=== PATIENT | male | born 1945 | race Caucasian/White ===

== ENCOUNTER 2022-09-02 18:31 | Emergency (ER) | payer MEDICARE, OTHER ==
[~2022-09-02] VITALS: Ht 165.1 cm; Wt 56.0 kg
[2022-09-02 19:56] LABS: Basophils # (auto) 0 10 ^3/uL (0-0.2); Basophils % (auto) 0.5 % (0.0-2.0); Eosinophils # (auto) 0.1 10 ^3/uL (0-0.8); Eosinophils % (auto) 1.5 % (0.0-7.0); Hematocrit 35.9 % (41.0-53.0); Lymphocytes # (auto) 2.6 10 ^3/uL (0.4-5.4); Lymphocytes % (auto) 28.4 % (10.0-50.0); Mean Corpuscular Hemoglobin 29.5 pg (28.0-32.0); Mean Corpuscular Hgb Conc. 33.4 g/dL (32.0-36.0); Mean Corpuscular Volume 88.2 fL (80.0-100.0); Monocytes # (auto) 1.1 10 ^3/uL (0-1.3); Neutrophils # (auto) 5.3 10 ^3/uL (1.6-8.6); Neutrophils % (auto) 57.6 % (37.0-80.0); Nucleated Red Blood Cells % 0.3 %; Red Blood Cells 4.07 10^6/uL (4.5-5.90); Red Cell Distribution Width 12.8 % (11.8-14.3); White Blood Cell 9.2 10^3/uL (4.4-10.8)
[2022-09-02 19:57] LABS: Albumin 3.3 g/dL (3.4-5.0); Calcium 8.7 mg/dL (8.5-10.1); Potassium 4.8 mmol/L (3.5-5.1)
[2022-09-02 20:00] LABS: Bilirubin, Total 0.7 mg/dL (0.2-1.0); Total Protein 6.3 g/dL (6.4-8.2)
[2022-09-02] MEDS ORDERED: InsuLIN REG 1unit/0.01ml Soln (100units/ml) IV ONE (20:45)
[2022-09-03 03:39] VITALS: BP 139/62
== END 2022-09-03 04:13 | disposition home or self-care (01) ==
LOC: EDBD 18:31 → ER 18:45
DX: E11.65 Type 2 diabetes mellitus with hyperglycemia (principal); R07.89 Other chest pain; I10 Essential (primary) hypertension
CPT/HCPCS: 36415; 71045; 80053; 82962; 83880; 84484; 85025; 93005; 96374; 99285; J1815

== ENCOUNTER 2024-11-26 22:59 | Inpatient (IN) | payer MEDICARE, OTHER ==
[~2024-11-26] VITALS: Ht 167.6 cm; Wt 78.8 kg
[2024-11-26 23:10] VITALS: PULSE 97; RESP 16; O2SAT 93
--- NOTE | 2024-11-26 23:12 | ED.PDOC ---
HPI Comments 79-year-old male came to ER via EMS for STEMI. Patient has history of hypertension and diabetes, been complaining of chest pains for the past 4 days. Chest pain described to be pressure, substernal, radiating to both shoulders and arms, 8/10 intensity, associated with shortness a breath. Patient was given 324 aspirin while EN route to the ER. EKG done shows significant ST changes Chief Complaint: STEMI Time Seen by MD: 23:16 Reviewed Notes: Comparator Operator Notes Allergies: Coded Allergies: NO KNOWN ALLERGIES (Unverified , 09/03/22) Home Meds Unable to Obtain Active Prescriptions or Reported Meds Information Source: Patient, Emergency Med Personnel Mode of Arrival: EMS Severity: Moderate Timing: Days Duration: Intermittent Prehospital treatment: 12 Lead EKG, ASA Location: Substernal Radiation: Shoulder (R), Shoulder (L) Quality: Pressure Onset: With Light Exertion Cardiac Risk Factors: HTN, Diabetes History of: Similar pain in past Associated Signs and Symptoms: SOB Past Medical History PAST MEDICAL HISTORY: DM, HTN Surgical History: Denies all surgeries Surgical History (Other): Whipple's procedure Family History Family History: Reviewed,noncontributory to illness Social History Smoker: Non-Smoker Alcohol: Denies ETOH Use Drugs: Denies Drug Use Lives In: Home Constitutional: denies: chills, diaphoresis, fatigue, fever, malaise, sweats, weakness, others EENTM: denies: blurred vision, double vision, ear bleeding, ear discharge, ear drainage, ear pain, ear ringing, eye pain, eye redness, hearing loss, mouth pain, mouth swelling, nasal discharge, nose bleeding, nose congestion, nose pain, photophobia, tearing, throat pain, throat swelling, voice changes, others Respiratory: denies: cough, hemoptysis, orthopnea, SOB at rest, shortness of breath, SOB with excertion, stridor, wheezing, others Cardiovascular: reports: chest pain, diaphoresis; denies: dizzy spells, Dyspnea on exertion, edema, irregular heart beat, left arm pain, lightheadedness, palpitations, PND, syncope, others Gastrointestinal: denies: abdomen distended, abdominal pain, blood streaked bowels, constipated, diarrhea, dysphagia, difficulty swallowing, hematemesis, melena, nausea, poor appetite, poor fluid intake, rectal bleeding, rectal pain, vomiting, others Genitourinary: denies: burning, dysuria, flank pain, frequency, hematuria, incontinence, penile discharge, penile sore, pain, testicle pain, testicle swelling, urgency, others Neurological: denies: dizziness, fainting, headache, left sided numbness, left sided weakness, numbness, paresthesia, pre-existing deficit, right sided numbness, right sided weakness, seizure, speech problems, tingling, tremors, weakness, others Musculoskeletal: denies: back pain, gout, joint pain, joint swelling, muscle pain, muscle stiffness, neck pain, others Integumetry: denies: bruises, change in color, change in hair/nails, dryness, laceration, lesions, lumps, rash, wounds, others Allergic/Immunocompromised: denies: Difficulty Healing, Frequent Infections, Hives, Itching, others Hematologic/Lymphatic: denies: anemia, blood clots, easy bleeding, easy bruising, swollen glands, others Endocrine: denies: excessive hunger, excessive sweating, excessive thirst, excessive urination, flushing, intolerance to cold, intolerance to heat, unexplained weight gain, unexplained weight loss, others Psychiatric: denies: anxiety, bipolar disorder, depression, hopeless, panic disorder, schizophrenia, sleepless, suicidal, others Physical Exam General Appearance: No Apparent Distress, Normal HEENT: Normal ENT Inspection, Pharynx Normal, TMs Normal Neck: Full Range of Motion, Non-Tender, Normal, Normal Inspection Respiratory: Chest Non-Tender, Lungs Clear, No Accessory Muscle Use, No Respiratory Distress, Normal Breath Sounds Cardiovascular: No Edema, No JVD, No Murmur, No Gallop, Normal Peripheral Pulses, Regular Rate/Rhythm Breast Exam: Deferred Gastrointestinal: No Organomegaly, Non Tender, No Pulsatile Mass, Normal Bowel Sounds, Soft Genitalia: Deferred Pelvic: Deferred Rectal: Deferred Extremities: No calf tenderness, Normal capillary refill, Normal inspection, Normal range of motion, Non-tender, No pedal edema Musculoskeletal : Apperance: Normal Neurologic: Alert, academic associate II-XII nml as Tested, No Motor Deficits, Normal Affect, Normal Mood, No Sensory Deficits Cerebellar Function: Normal Reflexes: Normal Skin: Dry, Normal Color, Warm Lymphatic: No Adenopathy EKG EKG : Pulse Rate (adult): 96 Cardiac Rhythm: ST ST: New, Inf, Infarct Comments Multiple ventricular premature complex Was a procedure done? Was a procedure done?: No CP Differential Dx Differential Diagnosis: Angina, Anxiety / Panic Attack, Electrolyte Disorder Differential Diagnosis: Angina, Chest Wall Pain, Costochondritis, Esophageal reflux/spasm, Gastritis, Myocardial Infarction, Pneumonia X-Ray, Labs, Meds, VS Vital Signs Date Time Temp Pulse Resp B/P (MAP) Pulse Ox O2 Delivery O2 Flow Rate FiO2 11/26/24 23:20 98.0 94 12 152/83 (106) 93 98.0 11/26/24 23:18 95 12 160/83 11/26/24 23:16 96 11/26/24 23:10 98.4 97 16 160/83 (108) 93 98.4 11/26/24 23:10 97 16 93 Room Air* 0 21 11/26/24 23:10 97 11/26/24 22:59 98.4 98 18 154/92 (112) 98 98.4 Lab Test 11/26/24 23:34 11/26/24 23:07 Range/Units POC Glucose 74 70-106 mg/dl White Blood Count 10.0 4.4-10.8 10^3/uL Red Blood Count 3.92 L 4.5-5.90 10^6/uL Hemoglobin 11.8 L 13.5-17.5 g/dL Hematocrit 34.8 L 41.0-53.0 % Mean Corpuscular Volume 88.7 80.0-100.0 fL Mean Corpuscular Hemoglobin 30.1 28.0-32.0 pg Mean Corpuscular Hemoglobin Concent 33.9 32.0-36.0 g/dL Red Cell Distribution Width 14.2 11.8-14.3 % Platelet Count 199 140-450 10^3/uL Mean Platelet Volume 9.0 6.9-10.8 fL Neutrophils (%) (Auto) 32.3 L 37.0-80.0 % Lymphocytes (%) (Auto) 50.8 H 10.0-50.0 % Monocytes (%) (Auto) 12.1 H 0.0-12.0 % Eosinophils (%) (Auto) 3.8 0.0-7.0 % Basophils (%) (Auto) 1.0 0.0-2.0 % Neutrophils # (Auto) 3.2 1.6-8.6 10 ^3/uL Lymphocytes # (Auto) 5.1 0.4-5.4 10 ^3/uL Monocytes # (Auto) 1.2 0-1.3 10 ^3/uL Eosinophils # (Auto) 0.4 0-0.8 10 ^3/uL Basophils # (Auto) 0.1 0-0.2 10 ^3/uL Nucleated Red Blood Cells 0.0 % Prothrombin Time 10.6 9.3-11.8 sec Prothrombin Time INR 1.00 0.9-1.15 Activated Partial Thromboplast Time 25.1 24.5-34.5 SEC Sodium Level 142 136-145 mmol/L Potassium Level 3.6 3.5-5.1 mmol/L Chloride Level 109 H 98-107 mmol/L Carbon Dioxide Level 25 20-31 mmol/L Anion Gap 8 5-15 Blood Urea Nitrogen 22 9-23 mg/dL Creatinine 2.41 H 0.700-1.30 mg/dL Glomerular Filtration Rate Calc 27 >90 mL/min BUN/Creatinine Ratio 9.1 L 10.0-20.0 Serum Glucose 79 74-106 mg/dL Lactic Acid Level 1.1 0.4-2.0 mmol/L Calcium Level 9.9 8.7-10.4 mg/dL Troponin I High Sensitivity 374 *H </=54 ng/L Time of 1ST Reevaluation: 23:12 Reevaluation 1ST: Unchanged Patient Education/Counseling: Diagnosis, Treatment Family Education/Counseling: No Family Present Departure 1 Departure Time of Disposition: 05:50 (Patient presenting with a STEMI. Patient was emergently taken to the greens laborer.) Impression: Primary Impression: Acute ST elevation myocardial infarction Qualified Codes: I21.3 - ST elevation (STEMI) myocardial infarction of u nspecified site Additional Impression: Acute chest pain Disposition: ADMITTED INPATIENT Admit to: animal laboratory technician Condition: Critical e-Prescriptions Unable to Obtain Active Prescriptions or Reported Meds Critical Care Note Critical Care Time?: Yes (45 min-critical care time only) Critical care comment: Acute chest pains Authorized and Performed by: Marcela Morrow MD Total critical care time: Approximately 38 minutes Due to a high probability of clinically significant, life threatening deterioration, the patient required my highest level of preparedness to intervene emergently and I personally spent this critical care time directly and personally managing the patient. This critical care time included obtaining a history; examining the patient; pulse oximetry; ordering and review of studies; arranging urgent treatment with development of a management plan; evaluation of patient's response to treatment; frequent reassessment; and, discussions with other providers. This critical care time was performed to assess and manage the high probability of imminent, life-threatening deterioration that could result in multi-organ failure. It was exclusive of separately billable procedures and treating other patients and teaching time. Please see my other sections and the rest of the note for further information on patient assessment and treatment. Stability Stability form required: No Heart Score Heart Score: Heart Score Response (Comments) Value History Highly Suspicious [address]-Deviation 2 Age >65 2 Risk Factors >3 or Hx ASHD 2 Troponin >3 x's Normal limit 2 Total 10 I personally scribed for MARCELA MORROW MD ([email or web address]) on 11/26/24 at 23:12. Electronically submitted by Souleymane Joseph ([email or web address]). I personally scribed for MARCELA MORROW MD ([email or web address]) on 11/26/24 at 23:16. Electronically submitted by Souleymane Joseph ([email or web address]). MARCELA MORROW MD November 26, 2024 23:12
[2024-11-26] MEDS: CLOPIDOGREL BISULFATE 75 MG TAB PO ONE (23:18)
[2024-11-26] MEDS: ONDANSETRON HCL 4 MG/2 ML VIAL IV ONE (23:18)
[2024-11-26] MEDS: MORPHINE SULFATE 4 MG/ML SYR/VIAL IV ONE (23:18)
[2024-11-26] MEDS: HEPARIN SODIUM (PORCINE) 5000 UNITS/ML 1ML VIAL IV ONE (23:19)
[2024-11-26] MEDS: SODIUM CHL 0.9% 50 ML ONE (23:29)
[2024-11-26] MEDS: ANGIOMAX 250 MG VIAL IV ONE (23:29)
[2024-11-26] MEDS: MIDAZOLAM HCL 2MG/2ML 2ml VIAL (1mg/ml) ONE (23:29)
[2024-11-26] MEDS: fentaNYL CITRATE 100 MCG/2 ML VL ONE (23:29)
[2024-11-26] MEDS: VERAPAMIL 2.5MG/ML INJ 2ML VIAL IV ONE (23:29)
[2024-11-26] MEDS: LIDOCAINE 2%HCL (LOCAL ANESTH.) INJ 20ML MDV ONE (23:29)
[2024-11-26 23:36] LABS: Basophils # (auto) 0.1 10 ^3/uL (0-0.2); Eosinophils # (auto) 0.4 10 ^3/uL (0-0.8); Eosinophils % (auto) 3.8 % (0.0-7.0); Hematocrit 34.8 % (41.0-53.0); Hemoglobin 11.8 g/dL (13.5-17.5); Lymphocytes # (auto) 5.1 10 ^3/uL (0.4-5.4); Lymphocytes % (auto) 50.8 % (10.0-50.0); Mean Corpuscular Hemoglobin 30.1 pg (28.0-32.0); Mean Corpuscular Hgb Conc. 33.9 g/dL (32.0-36.0); Mean Corpuscular Volume 88.7 fL (80.0-100.0); Monocytes # (auto) 1.2 10 ^3/uL (0-1.3); Monocytes % (auto) 12.1 % (0.0-12.0); Neutrophils # (auto) 3.2 10 ^3/uL (1.6-8.6); Neutrophils % (auto) 32.3 % (37.0-80.0); Platelet Count (auto) 199 10^3/uL (140-450); Red Blood Cells 3.92 10^6/uL (4.5-5.90); Red Cell Distribution Width 14.2 % (11.8-14.3)
--- NOTE | 2024-11-26 23:36 | DVH ---
CHEST RADIOGRAPH Indication: chest pain Technique: Single frontal view of the chest was obtained COMPARISON: CHEST PORTABLE on DOS: 09/02/22 FINDINGS: Lines and Tubes: None Lungs: Clear Pleura: No effusion. No pneumothorax. Cardiomediastinal contours: Unremarkable IMPRESSION: No acute disease.
[2024-11-26 23:43] LABS: Potassium 3.6 mmol/L (3.5-5.1); Sodium 142 mmol/L (136-145)
[2024-11-26 23:44] LABS: Anion Gap 8 (5-15); Calcium 9.9 mg/dL (8.7-10.4); Carbon Dioxide 25 mmol/L (20-31)
[2024-11-26 23:46] LABS: Chloride 109 mmol/L (98-107)
[2024-11-26 23:49] LABS: BUN/Creatinine Ratio 9.1 (10.0-20.0); Blood Urea Nitrogen 22 mg/dL (9-23); Glucose 79 mg/dL (74-106)
--- NOTE | 2024-11-26 23:49 | DVHINCON2 ---
Date Seen: November 26, [address] Francisco Reason for Consultation Chest pain History of Present Illness 79-year-old gentleman who has been having chest pain for the last several days had an increasing bout of chest pain this evening. He came for further evaluation and treatment. He was brought by the ambulance. EN route he was noted to have ST segment elevations in the inferior leads. A code STEMI was ca lled. He does not have a previous history of underlying coronary artery disease Past Medical History His past medical history is significant for diabetes and hypertension. History of neuropathy. Chronic joint pain. Past Surgical History He does have a history of previous hip surgery. Previous gallbladder surgery and history of pancreatic surgery. History of pancreatic cyst in the past. Allergies: Coded Allergies: NO KNOWN ALLERGIES (Unverified , 09/03/22) Review of Systems Constitutional: denies: chills, diaphoresis, fatigue, fever, malaise, sweats, weakness, others EENTM: denies: blurred vision, double vision, ear bleeding, ear discharge, ear drainage, ear pain, ear ringing, eye pain, eye redness, hearing loss, mouth pain, mouth swelling, nasal discharge, nose bleeding, nose congestion, nose pain, photophobia, tearing, throat pain, throat swelling, voice changes, others Respiratory: denies: cough, hemoptysis, orthopnea, SOB at rest, shortness of breath, SOB with excertion, stridor, wheezing, others Cardiovascular: reports: chest pain, diaphoresis; denies: dizzy spells, Dyspnea on exertion, edema, irregular heart beat, left arm pain, lightheadedness, palpitations, PND, syncope, others Gastrointestinal: denies: abdomen distended, abdominal pain, blood streaked rustam wels, constipated, diarrhea, dysphagia, difficulty swallowing, hematemesis, melena, nausea, poor appetite, poor fluid intake, rectal bleeding, rectal pain, vomiting, others Genitourinary: denies: burning, dysuria, flank pain, frequency, hematuria, incontinence, penile discharge, penile sore, pain, testicle pain, testicle swelling, urgency, others Neurological: denies: dizziness, fainting, headache, left sided numbness, left sided weakness, numbness, paresthesia, pre-existing deficit, right sided numbness, right sided weakness, seizure, speech problems, tingling, tremors, weakness, others Musculoskeletal: denies: back pain, gout, joint pain, joint swelling, muscle pain, muscle stiffness, neck pain, others Integumetry: denies: bruises, change in color, change in hair/nails, dryness, laceration, lesions, lumps, rash, wounds, others Allergic/Immunocompromised: denies: Difficulty Healing, Frequent Infections, Hives, Itching, others Hematologic/Lymphatic: denies: anemia, blood clots, easy bleeding, easy bruisin g, swollen glands, others Endocrine: denies: excessive hunger, excessive sweating, excessive thirst, excessive urination, flushing, intolerance to cold, intolerance to heat, unexplained weight gain, unexplained weight loss, others Psychiatric: denies: anxiety, bipolar disorder, depression, hopeless, panic disorder, schizophrenia, sleepless, suicidal, others Vital Signs Vital Signs Date Time Temp Pulse Resp B/P (MAP) Pulse Ox O2 Delivery O2 Flow Rate FiO2 11/26/24 23:20 98.0 94 12 152/83 (106) 93 98.0 11/26/24 23:10 Room Air* 0 21 Physical Exam Awake alert and oriented no acute distress. HEENT examination is otherwise unremarkable no jugular distention no bruits. Few coarse rhonchi bilaterally. Heart exam reveals regular S1-S2 soft S4. Abdominal examination is unremarkable. Extremities reveal adequate perfusion without clubbing cyanosis no edema. Neurologically intact without focal neurologic deficits. Integumentary is within normal limits. Labs/Diagnostic Data Labs Test 11/26/24 23:07 Range/Units White Blood Count 10.0 4.4-10.8 10^3/uL Red Blood Count 3.92 L 4.5-5.90 10^6/uL Hemoglobin 11.8 L 13.5-17.5 g/dL Hematocrit 34.8 L 41.0-53.0 % Mean Corpuscular Volume 88.7 80.0-100.0 fL Mean Corpuscular Hemoglobin 30.1 28.0-32.0 pg Mean Corpuscular Hemoglobin Concent 33.9 32.0-36.0 g/dL Red Cell Distribution Width 14.2 11.8-14.3 % Platelet Count 199 140-450 10^3/uL Mean Platelet Volume 9.0 6.9-10.8 fL Neutrophils (%) (Auto) 32.3 L 37.0-80.0 % Lymphocytes (%) (Auto) 50.8 H 10.0-50.0 % Monocytes (%) (Auto) 12.1 H 0.0-12.0 % Eosinophils (%) (Auto) 3.8 0.0-7.0 % Basophils (%) (Auto) 1.0 0.0-2.0 % Neutrophils # (Auto) 3.2 1.6-8.6 10 ^3/uL Lymphocytes # (Auto) 5.1 0.4-5.4 10 ^3/uL Monocytes # (Auto) 1.2 0-1.3 10 ^3/uL Eosinophils # (Auto) 0.4 0-0.8 10 ^3/uL Basophils # (Auto) 0.1 0-0.2 10 ^3/uL Nucleated Red Blood Cells 0.0 % Assessment EKG shows ST segment elevations in the inferior leads. Impression: Acute ST-elevation myocardial infarction. Inferior wall MT in evolution. Diabetes. Hypertension. Plan/Recommendation Patient will undergo cardiac catheterization therapeutic intervention. Risks and benefits have been explained patient agrees. Plan discussed with: Patient NYHA Physical activity limitations: Class2(Slight)fatigue,sob Date of Service: November 26, 2024 Billing Provider: TIFFANY FRANCOIS Sr., MD Cardiology [facility] C[facility] TIFFANY FRANCOIS Sr., MD November 26, 2024 23:49
[2024-11-26 23:50] LABS: Partial Thromboplastin Time 25.1 SEC (24.5-34.5); Prothrombin Time 10.6 sec (9.3-11.8)
[2024-11-27] VITALS (11 sets, daily range): BP systolic 105–156; BP diastolic 61–86; PULSE 62–91; RESP 12–18; TEMP 97.2–100.9; O2SAT 91–100
[2024-11-27] MEDS: ATROPINE SULF 1 MG/10ml SYR ONE (00:21)
--- NOTE | 2024-11-27 00:29 | DVHOP2 ---
Operative Report - 2 Report Details Date: 11/27/24 Preop Diagnosis: Acute ST-elevation myocardial infarction. Postop Diagnosis: Successful PTCA and stenting of right coronary artery. Surgeon: Tiffany Aviles MD Anesthesiologist: Conscious sedation. Anesthesia: Mac, Local Consent: The patient was informed of the risks and benefits of the procedure. These include but are not limited to complications of anesthesia, postoperative infection, incomplete relief of symptoms, recurrence of symptoms, damage to blood vessels, nerves and tendons, deep venous thrombosis, pulmonary embolism and possible need for repeat surgery in the future. Complications: No complications. Estimated Blood Loss: 5 cc. Findings: RCA lesion of 99% stenosis. [id number] disease of the diagonal RV size. Normal ejection fraction. Indications for Surgery: Acute ST-elevation myocardial infarction Name of Procedure Performed Left heart catheterization. Bilateral cine coronary angiography. Left ventricu lography. PTCA and stenting of the RCA. Procedure Details Procedure Details: Prior local anesthesia with 2% lidocaine to the right wrist and full informed consent obtained patient was prepped and draped in usual fashion followed by placement of a six [place] sheath into the radial artery through which a three five EBU guiding catheter was used to perform angioplasty and stenting of the RCA visualization of both left and right coronary arteries as well.. Hemodynamics: Aortic blood pressure was 110/70 end-diastolic pressure was 13 without gradient across the aortic valve on pullback. Coronary anatomy the RCA is a large vessel has moderate plaquing in its proximal portion. The midportion has a 99% subtotal hazy stenosis. Appears to be moderately calcified. The distal RCA is free of significant disease as are the posterolateral branches. The left main in his arms. It has a proximal 30-40% stenosis the mid and distal segments are normal. Left anterior descending has moderate plaquing throughout. The circumflex is nondominant. Moderate plaquing throughout its proximal mid section. The 1st marginal has a proximal 40-50% stenosis. The left anterior descending coronary artery is a large vessel with moderate plaquing. No critical lesions in the LAD. The 1st proximal diagonal has a 95% stenosis the 2nd proximal diagonal has a 95% stenosis. Ventriculography in the CEJA projection shows an EF 55%. Angioplasty was performed with a three five [address]. We isabel ulated the RCA. We then placed a two 5 x 15 mm balloon which was in 048 balloon into the mid RCA inflated to 14 atmospheres. We then tried to pass a three five by 15 mm noel Medtronic drug-eluting stent however we were not able to past the proximal RCA due to the angulation of the artery. We placed a Guidezilla into the distal segment of the lesion and then passed a stent within the Guidezilla. We then retracted the Guidezilla an implant of the stent successfully. There was excellent antegrade flow without thrombus formation and/or dissection. Impression successful PTCA and stenting of the RCA. Significant disease of the diagonal vessels. Normal ejection fraction. Mildly elevated left ventricular end-diastolic pressures at rest. Recommendations: Continue dual antiplatelet therapy. Given his chronic kidney disease we will bring patient back in 2-3 days for staged procedure of the diagonal vessels. Condition Guarded Disposition Still a Patient Date of Service: November 27, 2024 Billing Provider: TIFFANY AVILES Sr., MD Cardiology Common Codes: 23690[id number] Procedure Codes: 92869 -PTCA W/STENT PLACEMENT, 38608-BOLI FOR STEMI W/STENT TIFFANY AVILES Sr., MD November 27, 2024 00:29
[2024-11-27] MEDS ORDERED: MORPHINE SULFATE INJ 2 MG/ml SYRG IV PRN (00:30)
[2024-11-27] MEDS ORDERED: MILK OF MAGNESIA 30ML SUSP PO PRN (00:30)
[2024-11-27] MEDS ORDERED: NITROGLYCERIN 0.4 MG SL TAB SL PRN ×2 (00:30)
--- NOTE | 2024-11-27 06:48 | DVHHP2 ---
History of Present Illness Reason for Visit: STEMI History of Present Illness The patient is a 79-year-old male with past medical history of hypertension and diabetes mellitus who presented to [facility] ED with complaint of chest pain for the past 4 days. Patient reports symptoms progressively get worse with substernal chest pain radiating to both shoulder and arms, rating 8/10 numeric scale, associated shortness of breaths, diaphoresis, getting worse that prompted this visit. Patient was seen and evaluated in the ED via EMS, EKG showed significant ST changes in STEMI and was given aspirin 324 mg p.o. x1. Laboratory data shows WBC 10.0, hemoglobin 11.8, hematocrit 34.8, platelets 199, sodium 142, potassium 3.6, BUN 22, creatinine 2.41, glucose 79, troponin 374, blood pressure 126/69, heart rate 72, temperature 98.2� F, O2 saturation 98% on oxygen. Patient was seen by Dr. Aviles for acute ST-elevation myocardial infarction. Patient underwent successful PTCA and stenting of right coronary artery. On my assessment, patient denied chest pain at this moment, no headache, no dizziness, no palpitation, no shortness of breaths, no nausea, no vomiting, no fever, no chills. Patient was admitted for further evaluation and medical management. Past Medical History DM, HTN Past Surgical History Whipple's procedure, PTCA Family History Reviewed, noncontributory to the management of this case. Past Social History The patient lives at home, denies smoking, alcohol or illicit drugs abuse. Review of Systems Constitutional: No: Fever, Chills, Sweats, Weakness, Malaise, Other Eyes: No: Pain, Vision change, Conjunctivae inflammation, Eyelid inflammation, Other, Redness ENT: No: Ear pain, Ear discharge, Nose pain, Nose discharge, Nose congestion, Mouth pain, Mouth swelling, Throat pain, Throat swelling, Other Respiratory: No: Cough, Dry, Shortness of breath, SOB with excertion, Wheezing, Hemoptysis, Pleuritic Pain, Sputum, Wheezing, Other Cardiovascular: Chest Pain, Other (Diaphoresis); No: Palpitations, Orthopnea, Paroxysmal Noc. Dyspnea, Edema, Lt Headedness Gastrointestinal: No: Nausea, Vomiting, Abdominal Pain, Diarrhea, Constipation, Melena, Hematochezia, Other Genitourinary: No Dysuria, No Frequency, No Incontinence, No Hematuria, No Retention, No Other Musculoskeletal: No: other, neck pain, shoulder pain, arm pain, back pain, hand pain, leg pain, foot pain Skin: No: Rash, Lesions, Jaundice, Bruising, Other Neurological: No: Weakness, Numbness, Incoordination, Change in speech, Confusion, Seizures, Other Allergies: Coded Allergies: NO KNOWN ALLERGIES (Unverified , 09/03/22) Medications Current Medications Medications Dose Ordered Sig/Antoinette Route Start Time Stop Time Status Last Admin Dose Admin Nitroglycerin 0.4 mg Q5MINP PRN SL 11/27/24 00:30 Morphine Sulfate 2 mg Q30M PRN IV 11/27/24 00:30 Clopidogrel Bisulfate 75 mg DAILY PO 11/27/24 10:00 Carvedilol 3.125 mg BID PO 11/27/24 10:00 Lisinopril 2.5 mg DAILY PO 11/27/24 10:00 Aspirin 81 mg DAILY PO 11/27/24 10:00 Atorvastatin Calcium 40 mg DAILY PO 11/27/24 10:00 Zolpidem Tartrate 5 mg DAILY PO 11/27/24 10:00 Alprazolam 0.125 mg TID PRN PO 11/27/24 00:30 Magnesium Hydroxide 30 ml DAILY PRN PO 11/27/24 00:30 Pantoprazole Sodium 40 mg DAILY PO 11/27/24 10:00 Exam Vital Signs Vital Signs Date Time Temp Pulse Resp B/P (MAP) Pulse Ox O2 Delivery O2 Flow Rate FiO2 11/27/24 05:00 98.2 72 18 126/69 (88) 98 98.2 11/27/24 01:34 Room Air* 0 21 General Appearance: Alert, Oriented X3, Cooperative, No acute distress HEENT: Atraumatic, PERRLA, EOMI, Mucous membr. moist/pink Respiratory: Clear to auscultation, Normal air movement Cardiovascular: Regular rate, Normal S1, Normal S2, No murmurs Abdominal: Normal bowel sounds, Soft, No tenderness, No hepatospenomegaly, No masses Extremities: No clubbing, No cyanosis, No edema, Normal pulses, No tenderness/swelling Skin: No rashes, No breakdown, No significant lesion Neuro: Normal gait, Normal speech, Strength at 5/5 X4 ext, Normal tone, Sensation intact, Cranial nerves 3-12 NL, Reflexes 2+ Psych/Mental Status: Mental status NL, Mood NL Labs/Xrays Labs Test 11/26/24 23:34 11/26/24 23:07 Range/Units POC Glucose 74 70-106 mg/dl White Blood Count 10.0 4.4-10.8 10^3/uL Red Blood Count 3.92 L 4.5-5.90 10^6/uL Hemoglobin 11.8 L 13.5-17.5 g/dL Hematocrit 34.8 L 41.0-53.0 % Mean Corpuscular Volume 88.7 80.0-100.0 fL Mean Corpuscular Hemoglobin 30.1 28.0-32.0 pg Mean Corpuscular Hemoglobin Concent 33.9 32.0-36.0 g/dL Red Cell Distribution Width 14.2 11.8-14.3 % Platelet Count 199 140-450 10^3/uL Mean Platelet Volume 9.0 6.9-10.8 fL Neutrophils (%) (Auto) 32.3 L 37.0-80.0 % Lymphocytes (%) (Auto) 50.8 H 10.0-50.0 % Monocytes (%) (Auto) 12.1 H 0.0-12.0 % Eosinophils (%) (Auto) 3.8 0.0-7.0 % Basophils (%) (Auto) 1.0 0.0-2.0 % Neutrophils # (Auto) 3.2 1.6-8.6 10 ^3/uL Lymphocytes # (Auto) 5.1 0.4-5.4 10 ^3/uL Monocytes # (Auto) 1.2 0-1.3 10 ^3/uL Eosinophils # (Auto) 0.4 0-0.8 10 ^3/uL Basophils # (Auto) 0.1 0-0.2 10 ^3/uL Nucleated Red Blood Cells 0.0 % Prothrombin Time 10.6 9.3-11.8 sec Prothrombin Time INR 1.00 0.9-1.15 Activated Partial Thromboplast Time 25.1 24.5-34.5 SEC Sodium Level 142 136-145 mmol/L Potassium Level 3.6 3.5-5.1 mmol/L Chloride Level 109 H 98-107 mmol/L Carbon Dioxide Level 25 20-31 mmol/L Anion Gap 8 5-15 Blood Urea Nitrogen 22 9-23 mg/dL Creatinine 2.41 H 0.700-1.30 mg/dL Glomerular Filtration Rate Calc 27 >90 mL/min BUN/Creatinine Ratio 9.1 L 10.0-20.0 Serum Glucose 79 74-106 mg/dL Lactic Acid Level 1.1 0.4-2.0 mmol/L Calcium Level 9.9 8.7-10.4 mg/dL Troponin I High Sensitivity 374 *H </=54 ng/L PATIENT: MAGALY DAMIAN ACCT: [id number] UNIT: [id number] : 1945 LOC: ER ROOM / BED: / AGE / SEX: 79 / M ADM STATUS: REG ER SERVICE 15 ORDERING PHYSICIAN: MARCELA EARLY MD PROCEDURE(s): CXRP - CHEST PORTABLE REASON: chest pain ORDER NUMBER(s): [id number], ACCESSION NUMBER(s): [id number] CHEST RADIOGRAPH Indication: chest pain Technique: Single frontal view of the chest was obtained COMPARISON: CHEST PORTABLE on DOS: 09/02/22 FINDINGS: Lines and Tubes: None Lungs: Clear Pleura: No effusion. No pneumothorax. Cardiomediastinal contours: Unremarkable IMPRESSION: No acute disease. Assessment/Plan Assessment/Plan Acute chest pain Acute ST-elevation myocardial infarction. Plan 1. Admit to telemetry unit 2. Breathing treatment 3. Pain control management 4. Management of fluids and electrolytes 5. Consultation for Cardiology 6. Diagnostic tests chest x-ray 7. DVT prophylaxis-on Plavix 8. Repeat labs CBC, CMP in a.m. 9. Continue with current medical management 10. Treatment plan discussed with patient and RN. Patient verbalized understanding. Plan discussed with: Patient, Other (RN) My Orders Orders - BRITNI VAZQUEZ DNP Procedure Category Date Status Time Cardiac DIET 11/27/24 Transmitted Diet-2gna,Lofat,Lochol Breakfast Problem List: (1) Acute chest pain (2) Acute ST elevation myocardial infarction Date of Service: November 27, 2024 Billing Provider: BRITNI VAZQUEZ DNP Common Visit Codes: [id number] INP/OBS CARE (HIGH) BRITNI VAZQUEZ DNP November 27, 2024 06:48
[2024-11-27 07:39] LABS: Basophils # (auto) 0.1 10 ^3/uL (0-0.2); Basophils % (auto) 0.9 % (0.0-2.0); Eosinophils # (auto) 0.3 10 ^3/uL (0-0.8); Eosinophils % (auto) 3.6 % (0.0-7.0); Hematocrit 37.1 % (41.0-53.0); Hemoglobin 12.4 g/dL (13.5-17.5); Lymphocytes # (auto) 3.6 10 ^3/uL (0.4-5.4); Lymphocytes % (auto) 42.5 % (10.0-50.0); Mean Corpuscular Hgb Conc. 33.5 g/dL (32.0-36.0); Mean Corpuscular Volume 89.6 fL (80.0-100.0); Monocytes % (auto) 12.2 % (0.0-12.0); Neutrophils # (auto) 3.4 10 ^3/uL (1.6-8.6); Neutrophils % (auto) 40.8 % (37.0-80.0); Platelet Count (auto) 191 10^3/uL (140-450); Red Blood Cells 4.14 10^6/uL (4.5-5.90); Red Cell Distribution Width 14.3 % (11.8-14.3); White Blood Cell 8.4 10^3/uL (4.4-10.8)
[2024-11-27 08:05] LABS: Alanine Aminotransferase 27 U/L (7-40); Alkaline Phosphatase 65 U/L (46-116); Anion Gap 9 (5-15); BUN/Creatinine Ratio 7.2 (10.0-20.0); Blood Urea Nitrogen 17 mg/dL (9-23); Calcium 10.3 mg/dL (8.7-10.4); Carbon Dioxide 25 mmol/L (20-31); LDL Cholesterol 77 mg/dL (< 100); Potassium 4.3 mmol/L (3.5-5.1); Sodium 142 mmol/L (136-145); Total Protein 6.5 g/dL (5.7-8.2); Triglycerides 121 mg/dL (< 150)
[2024-11-27 08:06] LABS: Albumin 3.9 g/dL (3.2-4.8); Cholesterol 148 mg/dL (< 200); HDL Cholesterol 54 mg/dL (40-59)
[2024-11-27 08:07] LABS: Bilirubin, Total 0.5 mg/dL (0.2-1.0)
[2024-11-27 08:12] LABS: Aspartate Aminotransferase 56 U/L (13-40); Chloride 108 mmol/L (98-107); Glucose 53 mg/dL (74-106)
[2024-11-27] MEDS ORDERED: ZOLPIDEM TARTRATE 5 MG TAB PO SCH (10:00)
[2024-11-27] MEDS: CLOPIDOGREL BISULFATE 75 MG TAB PO SCH (10:19)
[2024-11-27] MEDS: PANTOPRAZOLE 40 MG TAB PO SCH (10:19)
[2024-11-27] MEDS: ATORVASTATIN 20 MG TAB PO SCH (10:20)
[2024-11-27] MEDS: ASPirin-EC 81 mg tab PO SCH (10:20)
[2024-11-27] MEDS: LISINOPRIL 5 MG TAB PO SCH (10:21)
[2024-11-27] MEDS: CARVEDILOL 3.125 MG TAB PO SCH (10:23)
--- NOTE | 2024-11-27 12:41 | DVHSR ---
APPROVED REPORT EXAM: Two-dimensional and M-mode echocardiogram with Doppler and color Doppler. Blood Pressure: 126/69 mmHg INDICATION STEMI RISK FACTORS Height: 66, Weight: 167 DIMENSIONS LVDd5.0 (3.8-5.7cm)LA (2D)4.4 (1.9-4.0cm)Aortic Root3.6 (2.0-3.7cm) LVDs2.8 (2.5-4.0cm)LA (MM) (1.9-4.0cm)Aortic Cusp Exc1.7 (1.5-2.0cm) EF (%) 76.0 (55-70%)Rt. Atrium3.1 (1.9-4.0cm)Asc. Aorta cm IVSd1.0 (0.7-1.1cm)RV (D) (1.8-2.4cm) PWd1.2 (0.7-1.1cm) Mitral Valve MitralMitral Stenosis E wave0.85m/sMV Mean GR.mmHg A wave0.83m/sMV Peak GR.31mmHg E/A ratio1.02D MVAcm2 DECEL [id number] 1/2 [id number] IVRTmsDop MVA2.41cm2 Aortic Valve Aortic ValveAortic Stenosis V10.95m/Tay Mean GR.3mmHg V21.23m/Tay Peak GR.6mmHg LVOT Diameter1.8 (1.8-2.4cm)Doppler AVA1.96cm2 Pulmonic Valve V20.75m/s Tricuspid Valve TR Velocity2.15m/s [id number] Conclusion Technically good study. Sinus rhythm. Left atrial enlargement with aortic root enlargement. Dilation of the sinuses of Valsalva. Mild aortic sclerosis without stenosis. Left ventricular function is preserved at 60% with normal RV function. Doppler reveals mild mitral insufficiency. No pericardial effusion masses or vegetations.
--- NOTE | 2024-11-27 14:20 | ECG ---
[facility] Test Date: 2024-11-26 Test Time: 23:03:45 Pat Name: MAGALY DAMIAN Department: ED Room: 0279T A Gender: M Claims Account Manager: YF : 1945 Requested By: TIFFANY AVILES Order Number: [id number] Reading MD: Tiffany Aviles Measurements Intervals [place] Rate: 96 P: 80 OH: 169 QRS: 21 QRSD: 70 T: 117 QT: 295 QTc: 373 Interpretive Statements Sinus tachycardia Multiple ventricular premature complexes Inferior infarct, acute (RCA) Probable RV involvement, suggest recording right precordial leads Electronically Signed On 11-27-2024 15:34:19 PDT by Tiffany Aviles Please click the below link to view image of tracing.
[2024-11-27] MEDS: ZOLPIDEM TARTRATE 5 MG TAB PO SCH (22:26)
[2024-11-28] VITALS (8 sets, daily range): BP systolic 107–135; BP diastolic 54–69; PULSE 62–80; RESP 16–20; TEMP 98.2–99.6; O2SAT 91–100
[2024-11-28] MEDS ORDERED: GABA-1250 PO (11:46)
[2024-11-28] MEDS ORDERED: ATOR20TA PO (11:46)
[2024-11-28] MEDS ORDERED: LISI20TA56 PO (11:46)
[2024-11-28] MEDS ORDERED: HYDR12.59 PO (11:46)
[2024-11-28] MEDS ORDERED: DEXTROSE (50%) 50ML SYRG IV PRN (13:00)
[2024-11-28] MEDS ORDERED: InsuLIN REG 1unit/0.01ml Soln (100units/ml) SC SCH ×2 (16:00→17:00)
[2024-11-28] MEDS ORDERED: ACCU-CHEK COMFORT CURVE STRIP VI SCH ×2 (16:00→17:00)
[2024-11-28] MEDS: ACCU-CHEK COMFORT CURVE STRIP VI SCH (17:00)
--- NOTE | 2024-11-28 17:13 | DVHPN2 ---
Subjective in bed with no chest pain Changes from previous H/P or p: No Changes Eyes: No Pain, No Vision change, No Conjunctivae inflammation, No Eyelid inflammation, No Other, No Redness ENT: No Ear pain, No Ear discharge, No Nose pain, No Nose discharge, No Nose congestion, No Mouth pain, No Mouth swelling, No Throat pain, No Throat swelling, No Other Cardiovascular: Chest Pain; No Palpitations, No Orthopnea, No Paroxysmal Noc. Dyspnea, No Edema, No Lt Headedness; Other (Diaphoresis) Respiratory: No Cough, No Dry, No Shortness of breath, No SOB with excertion, No Wheezing, No Hemoptysis, No Pleuritic Pain, No Sputum, No Other Gastrointestinal: No Nausea, No Vomiting, No Abdominal Pain, No Diarrhea, No Constipation, No Melena, No Hematochezia, No Other Genitourinary: No Dysuria, No Frequency, No Incontinence, No Hematuria, No Retention, No Other Musculoskeletal: No other, No neck pain, No shoulder pain, No arm pain, No back pain, No hand pain, No leg pain, No foot pain Skin: No Rash, No Lesions, No Jaundice, No Bruising, No Other Objective Vitals Vital Signs Date Time Temp Pulse Resp B/P (MAP) Pulse Ox O2 Delivery O2 Flow Rate FiO2 11/28/24 16:32 98.3 64 16 135/54 (81) 96 98.3 11/28/24 08:00 Nasal Cannula* 2 28 Intake/Output Intake and Output 11/28/24 07:00 Intake Total 760 ml Output Total 150 ml Balance 610 ml Intake Oral 760 ml Output Urine Total 150 ml # Voids 6 # Bowel Movements 2 General Appearance: Alert, Oriented X3 HEENT: Atraumatic, PERRLA Lungs: Clear to auscultation Cardiovascular: Regular rate, Normal S1, Normal S2 Medications Current Medications Medications Dose Ordered Sig/Antoinette Route Start Time Stop Time Status Last Admin Dose Admin Nitroglycerin 0.4 mg Q5MINP PRN SL 11/27/24 00:30 Morphine Sulfate 2 mg Q30M PRN IV 11/27/24 00:30 Clopidogrel Bisulfate 75 mg DAILY PO 11/27/24 10:00 11/28/24 09:07 75 MG Carvedilol 3.125 mg BID PO 11/27/24 10:00 11/28/24 09:06 3.125 MG Lisinopril 2.5 mg DAILY PO 11/27/24 10:00 11/28/24 09:07 2.5 MG Aspirin 81 mg DAILY PO 11/27/24 10:00 11/28/24 09:07 81 MG Atorvastatin Calcium 40 mg DAILY PO 11/27/24 10:00 11/28/24 09:07 40 MG Alprazolam 0.125 mg TID PRN PO 11/27/24 00:30 Magnesium Hydroxide 30 ml DAILY PRN PO 11/27/24 00:30 Pantoprazole Sodium 40 mg DAILY PO 11/27/24 10:00 11/28/24 09:06 40 MG Zolpidem Tartrate 5 mg HS PO 11/27/24 22:00 11/27/24 22:26 5 MG Dextrose 50 ml UD PRN IV 11/28/24 13:00 Insulin Human Regular ACHS SC 11/28/24 17:00 Diagnostic Test (Pha) 1 strip ACHS 11/28/24 17:00 Laboratory Results Laboratory Tests 11/27/24 07:12 Assessment/Plan Assessment/Plan Acute chest pain Acute ST-elevation myocardial infarction. s/p angio with successful PTCA and stenting of the RCA. Plan Going for another angio in 2-3 per cardiology as staged. Continue DAPT, statin carvedilol and lisinopril cardiology following Plan discussed with: Patient My Orders Orders - CHAN FAJARDO MD Procedure Category Date Status Time Dextrose 50% Syringe PHA 11/28/24 In Process 13:00 Insulin R (Human) PHA 11/28/24 In Process (Insulin R) 17:00 Glucose Blood PHA 11/28/24 In Process (Accu-Chek Comfort 17:00 Date of Service: November 28, 2024 Billing Provider: CHAN FAJARDO MD Common Visit Codes: [id number] INP/OBS CARE(HIGH) CHAN FAJARDO MD November 28, 2024 17:13
[2024-11-28] MEDS: InsuLIN REG 1unit/0.01ml Soln (100units/ml) SC SCH (18:36)
[2024-11-29] VITALS (8 sets, daily range): BP systolic 126–144; BP diastolic 71–89; PULSE 63–93; RESP 16–18; TEMP 98.3–98.8; O2SAT 94–96
--- NOTE | 2024-11-29 15:42 | DVHPN2 ---
Subjective in bed with no chest pain Changes from previous H/P or p: No Changes Eyes: No Pain, No Vision change, No Conjunctivae inflammation, No Eyelid inflammation, No Other, No Redness ENT: No Ear pain, No Ear discharge, No Nose pain, No Nose discharge, No Nose congestion, No Mouth pain, No Mouth swelling, No Throat pain, No Throat swelling, No Other Cardiovascular: Chest Pain; No Palpitations, No Orthopnea, No Paroxysmal Noc. Dyspnea, No Edema, No Lt Headedness; Other (Diaphoresis) Respiratory: No Cough, No Dry, No Shortness of breath, No SOB with excertion, No Wheezing, No Hemoptysis, No Pleuritic Pain, No Sputum, No Other Gastrointestinal: No Nausea, No Vomiting, No Abdominal Pain, No Diarrhea, No Constipation, No Melena, No Hematochezia, No Other Genitourinary: No Dysuria, No Frequency, No Incontinence, No Hematuria, No Retention, No Other Musculoskeletal: No other, No neck pain, No shoulder pain, No arm pain, No back pain, No hand pain, No leg pain, No foot pain Skin: No Rash, No Lesions, No Jaundice, No Bruising, No Other Objective Vitals Vital Signs Date Time Temp Pulse Resp B/P (MAP) Pulse Ox O2 Delivery O2 Flow Rate FiO2 11/29/24 13:00 98.4 77 17 137/75 (95) 96 98.4 11/29/24 08:00 Room Air* 0 21 Intake/Output Intake and Output 11/29/24 07:00 Intake Total 940 ml Output Total 200 ml Balance 740 ml Intake Oral 940 ml Output Urine Total 200 ml # Voids 6 # Bowel Movements 1 General Appearance: Alert, Oriented X3 HEENT: Atraumatic, PERRLA Lungs: Clear to auscultation Cardiovascular: Regular rate, Normal S1, Normal S2 Medications Current Medications Medications Dose Ordered Sig/Antoinette Route Start Time Stop Time Status Last Admin Dose Admin Nitroglycerin 0.4 mg Q5MINP PRN SL 11/27/24 00:30 Morphine Sulfate 2 mg Q30M PRN IV 11/27/24 00:30 Clopidogrel Bisulfate 75 mg DAILY PO 11/27/24 10:00 11/29/24 09:47 75 MG Carvedilol 3.125 mg BID PO 11/27/24 10:00 11/29/24 09:48 3.125 MG Lisinopril 2.5 mg DAILY PO 11/27/24 10:00 11/29/24 09:47 2.5 MG Aspirin 81 mg DAILY PO 11/27/24 10:00 11/29/24 09:47 81 MG Atorvastatin Calcium 40 mg DAILY PO 11/27/24 10:00 11/29/24 09:47 40 MG Alprazolam 0.125 mg TID PRN PO 11/27/24 00:30 Magnesium Hydroxide 30 ml DAILY PRN PO 11/27/24 00:30 Pantoprazole Sodium 40 mg DAILY PO 11/27/24 10:00 11/29/24 09:47 40 MG Zolpidem Tartrate 5 mg HS PO 11/27/24 22:00 11/28/24 21:34 5 MG Dextrose 50 ml UD PRN IV 11/28/24 13:00 Insulin Human Regular ACHS SC 11/28/24 17:00 11/29/24 12:25 4 UNITS Diagnostic Test (Pha) 1 strip ACHS 11/28/24 17:00 11/29/24 11:30 1 STRIP Laboratory Results Laboratory Tests 11/27/24 07:12 Assessment/Plan Assessment/Plan Acute chest pain Acute ST-elevation myocardial infarction. s/p angio with successful PTCA and stenting of the RCA. Plan Going for another angio in 2-3 per cardiology as staged. Continue DAPT, statin carvedilol and lisinopril cardiology following Plan discussed with: Patient My Orders Orders - CHAN FAJARDO MD Procedure Category Date Status Time Glucose Blood PHA 11/28/24 In Process (Accu-Chek Comfort 17:00 Date of Service: November 29, 2024 Billing Provider: CHAN FAJARDO MD Common Visit Codes: [id number] INP/OBS CARE(HIGH) CHAN FAJARDO MD November 29, 2024 15:42
[2024-11-30] VITALS (8 sets, daily range): BP systolic 127–143; BP diastolic 64–80; PULSE 73–86; RESP 16–19; TEMP 97.9–99; O2SAT 96–97
[2024-11-30] MEDS: IODIXANOL 320MG/ML 100ML BTL IV ONE (07:29)
[2024-11-30] MEDS: HEPARIN IN NS 1000Units/500mL 1,500 ML ONE (07:29)
[2024-11-30] MEDS: HEPARIN SODIUM (PORCINE) 5000 UNITS/ML 1ML VIAL ONE (07:34)
[2024-11-30] MEDS: fentaNYL CITRATE 100 MCG/2 ML VL ONE (07:34)
[2024-11-30] MEDS: VERAPAMIL 2.5MG/ML INJ 2ML VIAL IV ONE (07:34)
[2024-11-30] MEDS: LIDOCAINE 2%HCL (LOCAL ANESTH.) INJ 20ML MDV ONE (07:35)
[2024-11-30] MEDS: SODIUM CHL 0.9% 0 ML ONE (07:35)
[2024-11-30] MEDS: MIDAZOLAM HCL 2MG/2ML 2ml VIAL (1mg/ml) ONE (07:35)
[2024-11-30] MEDS: ANGIOMAX 250 MG VIAL IV ONE (07:35)
--- NOTE | 2024-11-30 11:16 | DVHPN2 ---
Progress Note Date Seen: November 30, 2024 Medical Necessity Reason Pt with a Central, PICC or Fol: No Subjective Patient reports: No new complaints Review of Systems: HEENT:Normal, CVS:Normal, RESPIRATORY:Normal, GI:Normal, :Normal, MSK:Normal, NEURO:Normal Objective vital signs Vital Sign Date Time Temp Pulse Resp B/P (MAP) Pulse Ox O2 Delivery O2 Flow Rate FiO2 11/30/24 08:47 143/72 11/30/24 08:47 81 11/30/24 08:30 19 97 Room Air* 0 21 11/30/24 05:00 98.2 98.2 Total Intake and Output 11/29/24 11/29/24 11/30/24 15:00 23:00 07:00 Intake Total 858 ml 520 ml Balance 858 ml 520 ml medications Current Medications Medications Dose Ordered Sig/Antoinette Route Start Time Stop Time Status Last Admin Dose Admin Nitroglycerin 0.4 mg Q5MINP PRN SL 11/27/24 00:30 Morphine Sulfate 2 mg Q30M PRN IV 11/27/24 00:30 Clopidogrel Bisulfate 75 mg DAILY PO 11/27/24 10:00 11/30/24 08:46 75 MG Carvedilol 3.125 mg BID PO 11/27/24 10:00 11/30/24 08:47 3.125 MG Lisinopril 2.5 mg DAILY PO 11/27/24 10:00 11/30/24 08:47 2.5 MG Aspirin 81 mg DAILY PO 11/27/24 10:00 11/30/24 08:46 81 MG Atorvastatin Calcium 40 mg DAILY PO 11/27/24 10:00 11/30/24 08:47 40 MG Alprazolam 0.125 mg TID PRN PO 11/27/24 00:30 Magnesium Hydroxide 30 ml DAILY PRN PO 11/27/24 00:30 Pantoprazole Sodium 40 mg DAILY PO 11/27/24 10:00 11/30/24 08:46 40 MG Zolpidem Tartrate 5 mg HS PO 11/27/24 22:00 11/29/24 21:35 5 MG Dextrose 50 ml UD PRN IV 11/28/24 13:00 Insulin Human Regular ACHS SC 11/28/24 17:00 11/30/24 06:40 2 UNITS Diagnostic Test (Pha) 1 strip ACHS 11/28/24 17:00 11/30/24 06:35 1 STRIP Examination: GENERAL:Normal, HEENT:Normal, NECK:Normal, LUNGS:Normal, CVS:Normal, ABDOMEN:Normal, MSK:Normal, SKIN:Normal, NEURO:Normal, :Normal laboratory and microbiology Laboratory Tests 11/27/24 07:12 Test 11/27/24 07:12 Range/Units Serum Glucose 53 L 74-106 mg/dL Problem List/Assessment/Plan Problem List/Assessment/Plan #1 acute mi s/p angio/stent: cont meds, needs repeat intervention #2 ckd stage 3b: renal usg #3 dm: ssi #4 htn #5 djd right knee advance care planning-full code- time spent 19 mins Plan discussed with: Patient My Orders My Orders Orders - ALFA MADISON MD Procedure Category Date Status Time Basic Metabolic Panel LAB 11/30/24 Transmitted 11:10 Urinalysis LAB 11/30/24 Uncollected 11:10 Kidney US 11/30/24 Transmitted 11:10 Basic Metabolic Panel LAB 12/01/24 Verified 06:00 Complete Blood Count LAB 12/01/24 Verified 06:00 Hemoglobin A1c LAB 12/01/24 Verified 06:00 Date of Service: November 30, 2024 Billing Provider: ALFA MADISON MD Common Visit Codes: [id number] INP/OBS CARE(HIGH) Secondary Visit Codes: [id number] CARE PLAN 30 MINUTES ALFA MADISON MD November 30, 2024 11:16
--- NOTE | 2024-11-30 12:26 | DVH ---
Renal ultrasound HISTORY: RENAL FAILURE TECHNIQUE: 2 D ultrasound was performed with transaxial and longitudinal images. FINDINGS: The kidneys are echodense Right kidney measures 7.15 cm and left kidney measures 10.97 cm. No renal stones or hydronephrosis 2 cm cyst midpole of the right kidney. No mass left kidney. Urinary bladder incompletely distended with wall thickening. No intraluminal mass or stone. IMPRESSION: 1. Echogenic kidneys suggesting chronic renal medical disease. No stone or hydronephrosis. Small cyst right kidney. 2. Poorly distended urinary bladder limits evaluation
[2024-11-30 12:33] LABS: Chloride 105 mmol/L (98-107); Potassium 4.4 mmol/L (3.5-5.1); Sodium 138 mmol/L (136-145)
[2024-11-30 12:34] LABS: Anion Gap 9 (5-15); Carbon Dioxide 24 mmol/L (20-31)
[2024-11-30 12:35] LABS: Calcium 10.1 mg/dL (8.7-10.4)
[2024-11-30 12:40] LABS: BUN/Creatinine Ratio 11.2 (10.0-20.0)
[2024-11-30 12:41] LABS: Blood Urea Nitrogen 25 mg/dL (9-23); Glucose 188 mg/dL (74-106)
[2024-11-30 16:06] LABS: Urine Bacteria None Seen /hpf (None Seen)
--- NOTE | 2024-11-30 16:15 | DVHPN2 ---
Consult Progress Note Date Seen: November 30, 2024 Subjective Review of Systems: CVS:Normal, RESPIRATORY:Normal, NEURO:Normal Objective vital signs Vital Sign Date Time Temp Pulse Resp B/P (MAP) Pulse Ox O2 Delivery O2 Flow Rate FiO2 11/30/24 13:00 97.9 74 16 127/64 (85) 97 97.9 11/30/24 08:30 Room Air* 0 21 Total Intake and Output 11/29/24 11/29/24 11/30/24 15:00 23:00 07:00 Intake Total 858 ml 520 ml Balance 858 ml 520 ml medications Current Medications Medications Dose Ordered Sig/Antoinette Route Start Time Stop Time Status Last Admin Dose Admin Nitroglycerin 0.4 mg Q5MINP PRN SL 11/27/24 00:30 Morphine Sulfate 2 mg Q30M PRN IV 11/27/24 00:30 Clopidogrel Bisulfate 75 mg DAILY PO 11/27/24 10:00 11/30/24 08:46 75 MG Carvedilol 3.125 mg BID PO 11/27/24 10:00 11/30/24 08:47 3.125 MG Lisinopril 2.5 mg DAILY PO 11/27/24 10:00 11/30/24 08:47 2.5 MG Aspirin 81 mg DAILY PO 11/27/24 10:00 11/30/24 08:46 81 MG Atorvastatin Calcium 40 mg DAILY PO 11/27/24 10:00 11/30/24 08:47 40 MG Alprazolam 0.125 mg TID PRN PO 11/27/24 00:30 Magnesium Hydroxide 30 ml DAILY PRN PO 11/27/24 00:30 Pantoprazole Sodium 40 mg DAILY PO 11/27/24 10:00 11/30/24 08:46 40 MG Zolpidem Tartrate 5 mg HS PO 11/27/24 22:00 11/29/24 21:35 5 MG Dextrose 50 ml UD PRN IV 11/28/24 13:00 Insulin Human Regular ACHS SC 11/28/24 17:00 11/30/24 11:45 3 UNITS Diagnostic Test (Pha) 1 strip ACHS 11/28/24 17:00 11/30/24 11:46 1 STRIP Sodium Chloride 1,000 ml @ 60 mls/hr [id number] IV 11/30/24 16:00 UNV Acetylcysteine 600 mg BID PO 12/01/24 10:00 12/03/24 09:59 UNV Examination: LUNGS:Normal, CVS:Normal, NEURO:Normal laboratory and microbiology Laboratory Tests 11/30/24 11:55 11/27/24 07:12 Test 11/30/24 11:55 Range/Units Serum Glucose 188 #H 74-106 mg/dL Problem List/Assessment/Plan Problem List/Assessment/Plan Acute ST-Elevation Myocardial Infarction status post PCI Severe coronary artery disease status post PTCA and stenting of the RCA Hypertension Dyslipidemia Peripheral neuropathy [id number] diabetes mellitus CKD stage IIIb Plan/Recommendations (Dr. Aviles) * Echocardiogram revealed LVEF 60% with normal RV function * Dual-antiplatelet therapy and lipid lowering agent * Blood pressure control including a beta-mauro * Scheduled for staged procedure with Dr. Aviles on 12/02/24 * Initiate renal hydration and protection prior to intervention Thank you for allowing us to participate in this patient's care. Please call if you have any questions or concerns. This medical document was created using an electronic medical record system with voice recognition software and computerized dictation system. Although this document has been carefully reviewed, there might still be some phonetic and typographical errors. Occasional wrong-word or ``sound-alike�� substitutions may have occurred due to the inherent limitations of voice recognition software. These areas are purely typographical due to imperfections of the software programs and do not reflect any compromise in the patient's medical care. Please read the chart carefully and recognize, using context, where these substitutions have occurred. Plan discussed with: Patient, Other Date of Service: November 30, 2024 Billing Provider: IVY REAGAN Cardiology Common Codes: [id number] [facility] IVY REAGANP November 30, 2024 16:15
[2024-11-30 16:17] LABS: Urine Blood Negative /uL (Negative); Urine Clarity Clear (Clear); Urine Color Yellow (Yellow); Urine Protein, UAD Negative (Negative); Urine Specific Gravity 1.014 (1.001-1.035); Urine Squamous Epithelial Cell FEW /hpf (<5); Urine Urobilinogen Normal (Negative); Urine WBC 1 /HPF (0-3)
[2024-11-30] MEDS: SODIUM CHLORIDE 0.9% 1,000 ML IV SCH (17:55)
[2024-12-01] VITALS (8 sets, daily range): BP systolic 130–153; BP diastolic 56–79; PULSE 69–91; RESP 16–20; TEMP 97.9–98.9; O2SAT 94–98
--- NOTE | 2024-12-01 09:07 | DVHPN2 ---
Consult Progress Note Date Seen: December 01, 2024 Subjective Review of Systems: CVS:Normal, RESPIRATORY:Normal, NEURO:Normal Objective vital signs Vital Sign Date Time Temp Pulse Resp B/P (MAP) Pulse Ox O2 Delivery O2 Flow Rate FiO2 12/01/24 08:54 98.4 83 18 138/56 (83) 98 98.4 12/01/24 08:00 Room Air* 0 21 Total Intake and Output 11/30/24 11/30/24 12/01/24 15:00 23:00 07:00 Intake Total 300 ml 240 ml Balance 300 ml 240 ml medications Current Medications Medications Dose Ordered Sig/Antoinette Route Start Time Stop Time Status Last Admin Dose Admin Nitroglycerin 0.4 mg Q5MINP PRN SL 11/27/24 00:30 Morphine Sulfate 2 mg Q30M PRN IV 11/27/24 00:30 Clopidogrel Bisulfate 75 mg DAILY PO 11/27/24 10:00 11/30/24 08:46 75 MG Carvedilol 3.125 mg BID PO 11/27/24 10:00 11/30/24 22:02 3.125 MG Lisinopril 2.5 mg DAILY PO 11/27/24 10:00 11/30/24 08:47 2.5 MG Aspirin 81 mg DAILY PO 11/27/24 10:00 11/30/24 08:46 81 MG Atorvastatin Calcium 40 mg DAILY PO 11/27/24 10:00 11/30/24 08:47 40 MG Alprazolam 0.125 mg TID PRN PO 11/27/24 00:30 Magnesium Hydroxide 30 ml DAILY PRN PO 11/27/24 00:30 Pantoprazole Sodium 40 mg DAILY PO 11/27/24 10:00 11/30/24 08:46 40 MG Zolpidem Tartrate 5 mg HS PO 11/27/24 22:00 11/30/24 22:02 5 MG Dextrose 50 ml UD PRN IV 11/28/24 13:00 Insulin Human Regular ACHS SC 11/28/24 17:00 11/30/24 17:56 2 UNITS Diagnostic Test (Pha) 1 strip ACHS 11/28/24 17:00 12/01/24 07:16 1 STRIP Sodium Chloride 1,000 ml @ 60 mls/hr [id number] IV 11/30/24 16:00 11/30/24 17:55 60 MLS/HR Acetylcysteine 600 mg BID PO 12/01/24 10:00 12/03/24 09:59 Examination: LUNGS:Normal, CVS:Normal, NEURO:Normal laboratory and microbiology Laboratory Tests 11/30/24 11:55 11/27/24 07:12 Test 11/30/24 11:55 Range/Units Serum Glucose 188 #H 74-106 mg/dL Problem List/Assessment/Plan Problem List/Assessment/Plan Acute ST-Elevation Myocardial Infarction status post PCI Severe coronary artery disease status post PTCA and stenting of the RCA Hypertension Dyslipidemia Peripheral neuropathy Cjt-rvkbrla-ymgxsuedj diabetes mellitus CKD stage IIIb Plan/Recommendations (Dr. Aviles) * Echocardiogram revealed LVEF 60% with normal RV function * Dual-antiplatelet therapy and lipid lowering agent * Blood pressure control including a beta-mauro * Scheduled for staged procedure with Dr. Aviles on 12/02/24 * Continue renal hydration and protection prior to intervention * Blood work pending this morning Thank you for allowing us to participate in this patient's care. Please call if you have any questions or concerns. This medical document was created using an electronic medical record system with voice recognition software and computerized dictation system. Although this document has been carefully reviewed, there might still be some phonetic and typographical errors. Occasional wrong-word or ``sound-alike�� substitutions may have occurred due to the inherent limitations of voice recognition software. These areas are purely typographical due to imperfections of the software programs and do not reflect any compromise in the patient's medical care. Please read the chart carefully and recognize, using context, where these substitutions have occurred. Plan discussed with: Patient, Other Date of Service: December 01, 2024 Billing Provider: IVY REAGAN [facility] Cardiology Common Codes: [id number] [facility] IVY REAGAN [facility] December 01, 2024 09:06
[2024-12-01 09:33] LABS: Basophils # (auto) 0.1 10 ^3/uL (0-0.2); Eosinophils # (auto) 0.1 10 ^3/uL (0-0.8); Hematocrit 36.9 % (41.0-53.0); Hemoglobin 12.4 g/dL (13.5-17.5); Lymphocytes # (auto) 1.7 10 ^3/uL (0.4-5.4); Lymphocytes % (auto) 21.1 % (10.0-50.0); Mean Corpuscular Hgb Conc. 33.7 g/dL (32.0-36.0); Mean Corpuscular Volume 89.1 fL (80.0-100.0); Monocytes # (auto) 0.8 10 ^3/uL (0-1.3); Monocytes % (auto) 10.3 % (0.0-12.0); Neutrophils # (auto) 5.4 10 ^3/uL (1.6-8.6); Neutrophils % (auto) 66.6 % (37.0-80.0); Nucleated Red Blood Cells % 0.1 %; Platelet Count (auto) 206 10^3/uL (140-450); Red Blood Cells 4.14 10^6/uL (4.5-5.90)
[2024-12-01 09:39] LABS: Chloride 106 mmol/L (98-107); Potassium 4.4 mmol/L (3.5-5.1); Sodium 139 mmol/L (136-145)
[2024-12-01 09:40] LABS: Anion Gap 10 (5-15); Calcium 9.7 mg/dL (8.7-10.4); Carbon Dioxide 23 mmol/L (20-31)
[2024-12-01 09:45] LABS: BUN/Creatinine Ratio 11.6 (10.0-20.0)
[2024-12-01 09:49] LABS: Blood Urea Nitrogen 25 mg/dL (9-23); Glucose 293 mg/dL (74-106)
--- NOTE | 2024-12-01 11:06 | DVHPN2 ---
Progress Note Date Seen: December 01, 2024 Medical Necessity Reason Pt with a Central, PICC or Fol: No Subjective Patient reports: No new complaints Review of Systems: HEENT:Normal, CVS:Normal, RESPIRATORY:Normal, GI:Normal, :Normal, MSK:Normal, NEURO:Normal Objective vital signs Vital Sign Date Time Temp Pulse Resp B/P (MAP) Pulse Ox O2 Delivery O2 Flow Rate FiO2 12/01/24 09:53 135/56 12/01/24 09:51 83 12/01/24 08:54 98.4 18 98 98.4 12/01/24 08:00 Room Air* 0 21 Total Intake and Output 11/30/24 11/30/24 12/01/24 15:00 23:00 07:00 Intake Total 300 ml 240 ml Balance 300 ml 240 ml medications Current Medications Medications Dose Ordered Sig/Antoinette Route Start Time Stop Time Status Last Admin Dose Admin Nitroglycerin 0.4 mg Q5MINP PRN SL 11/27/24 00:30 Morphine Sulfate 2 mg Q30M PRN IV 11/27/24 00:30 Clopidogrel Bisulfate 75 mg DAILY PO 11/27/24 10:00 12/01/24 09:50 75 MG Carvedilol 3.125 mg BID PO 11/27/24 10:00 12/01/24 09:51 3.125 MG Lisinopril 2.5 mg DAILY PO 11/27/24 10:00 12/01/24 09:53 2.5 MG Aspirin 81 mg DAILY PO 11/27/24 10:00 12/01/24 09:51 81 MG Atorvastatin Calcium 40 mg DAILY PO 11/27/24 10:00 12/01/24 09:50 40 MG Alprazolam 0.125 mg TID PRN PO 11/27/24 00:30 Magnesium Hydroxide 30 ml DAILY PRN PO 11/27/24 00:30 Pantoprazole Sodium 40 mg DAILY PO 11/27/24 10:00 12/01/24 09:50 40 MG Zolpidem Tartrate 5 mg HS PO 11/27/24 22:00 11/30/24 22:02 5 MG Dextrose 50 ml UD PRN IV 11/28/24 13:00 Insulin Human Regular ACHS SC 11/28/24 17:00 11/30/24 17:56 2 UNITS Diagnostic Test (Pha) 1 strip ACHS 11/28/24 17:00 12/01/24 07:16 1 STRIP Sodium Chloride 1,000 ml @ 60 mls/hr [id number] IV 11/30/24 16:00 12/01/24 09:53 60 MLS/HR Acetylcysteine 600 mg BID PO 12/01/24 10:00 12/03/24 09:59 Examination: GENERAL:Normal, HEENT:Normal, NECK:Normal, LUNGS:Normal, CVS:Normal, ABDOMEN:Normal, MSK:Normal, SKIN:Normal, NEURO:Normal, :Normal laboratory and microbiology Laboratory Tests 12/01/24 09:17 Test 12/01/24 09:17 Range/Units Serum Glucose 293 #H 74-106 mg/dL Problem List/Assessment/Plan Problem List/Assessment/Plan #1 acute mi s/p angio/stent: cont meds, needs repeat intervention in am #2 ckd stage 3b: renal usg #3 dm: ssi #4 htn #5 djd right knee advance care planning-full code- time spent 19 mins Plan discussed with: Patient My Orders My Orders Orders - ALFA MADISON MD Procedure Category Date Status Time Kidney US 11/30/24 Resulted 11:10 Date of Service: December 01, 2024 Billing Provider: ALFA MADISON MD Common Visit Codes: [id number] INP/OBS CARE(HIGH) ALFA MADISON MD December 01, 2024 11:06
[2024-12-01] MEDS: ACETYLCYSTEINE ORAL for CIN 20%(200MG/ML) 4ML PO SCH (12:12)
[2024-12-01] MEDS: HYDROcodone-ACET 5/325MG TAB PO ONE (18:23)
[2024-12-02] VITALS (7 sets, daily range): BP systolic 136–148; BP diastolic 63–80; PULSE 71–83; RESP 17–20; TEMP 98.1–98.2; O2SAT 96–99
[2024-12-02 06:15] LABS: Basophils # (auto) 0.1 10 ^3/uL (0-0.2); Basophils % (auto) 1.2 % (0.0-2.0); Eosinophils # (auto) 0.2 10 ^3/uL (0-0.8); Hematocrit 34.6 % (41.0-53.0); Lymphocytes # (auto) 2.7 10 ^3/uL (0.4-5.4); Lymphocytes % (auto) 29.3 % (10.0-50.0); Mean Corpuscular Hemoglobin 30.6 pg (28.0-32.0); Mean Corpuscular Hgb Conc. 34.7 g/dL (32.0-36.0); Mean Corpuscular Volume 88.3 fL (80.0-100.0); Monocytes # (auto) 1.4 10 ^3/uL (0-1.3); Monocytes % (auto) 14.7 % (0.0-12.0); Neutrophils # (auto) 4.9 10 ^3/uL (1.6-8.6); Neutrophils % (auto) 52.8 % (37.0-80.0); Platelet Count (auto) 201 10^3/uL (140-450); Red Blood Cells 3.92 10^6/uL (4.5-5.90); Red Cell Distribution Width 13.7 % (11.8-14.3); White Blood Cell 9.2 10^3/uL (4.4-10.8)
[2024-12-02 06:25] LABS: Sodium 140 mmol/L (136-145)
[2024-12-02 06:26] LABS: Anion Gap 9 (5-15); Calcium 9.2 mg/dL (8.7-10.4); Carbon Dioxide 21 mmol/L (20-31)
[2024-12-02 06:31] LABS: BUN/Creatinine Ratio 11.3 (10.0-20.0)
[2024-12-02 06:34] LABS: Blood Urea Nitrogen 23 mg/dL (9-23); Chloride 110 mmol/L (98-107); Glucose 111 mg/dL (74-106)
[2024-12-02 06:35] LABS: INR 1.08 (0.9-1.15); Partial Thromboplastin Time 29.5 SEC (24.5-34.5); Prothrombin Time 11.4 sec (9.3-11.8)
--- NOTE | 2024-12-02 10:52 | DVHPN2 ---
Progress Note Date Seen: December 02, 2024 Medical Necessity Reason Pt with a Central, PICC or Fol: No Subjective Patient reports: No new complaints Review of Systems: HEENT:Normal, CVS:Normal, RESPIRATORY:Normal, GI:Normal, :Normal, MSK:Normal, NEURO:Normal Objective vital signs Vital Sign Date Time Temp Pulse Resp B/P (MAP) Pulse Ox O2 Delivery O2 Flow Rate FiO2 12/02/24 09:07 98.1 78 19 148/63 (91) 99 98.1 12/02/24 07:48 Room Air* 0 21 Total Intake and Output 12/01/24 12/01/24 12/02/24 15:00 23:00 07:00 Intake Total 550 ml 0 ml Balance 550 ml 0 ml medications Current Medications Medications Dose Ordered Sig/Antoinette Route Start Time Stop Time Status Last Admin Dose Admin Nitroglycerin 0.4 mg Q5MINP PRN SL 11/27/24 00:30 Morphine Sulfate 2 mg Q30M PRN IV 11/27/24 00:30 Clopidogrel Bisulfate 75 mg DAILY PO 11/27/24 10:00 12/02/24 09:03 75 MG Carvedilol 3.125 mg BID PO 11/27/24 10:00 12/02/24 09:03 3.125 MG Lisinopril 2.5 mg DAILY PO 11/27/24 10:00 12/02/24 09:02 2.5 MG Aspirin 81 mg DAILY PO 11/27/24 10:00 12/02/24 09:02 81 MG Atorvastatin Calcium 40 mg DAILY PO 11/27/24 10:00 12/01/24 21:13 40 MG Alprazolam 0.125 mg TID PRN PO 11/27/24 00:30 Magnesium Hydroxide 30 ml DAILY PRN PO 11/27/24 00:30 Pantoprazole Sodium 40 mg DAILY PO 11/27/24 10:00 12/02/24 09:03 40 MG Zolpidem Tartrate 5 mg HS PO 11/27/24 22:00 12/01/24 21:26 5 MG Dextrose 50 ml UD PRN IV 11/28/24 13:00 Insulin Human Regular ACHS SC 11/28/24 17:00 12/01/24 21:23 2 UNITS Diagnostic Test (Pha) 1 strip ACHS 11/28/24 17:00 12/02/24 06:43 1 STRIP Sodium Chloride 1,000 ml @ 60 mls/hr [id number] IV 11/30/24 16:00 12/01/24 09:53 60 MLS/HR Acetylcysteine 600 mg BID PO 12/01/24 10:00 12/03/24 09:59 12/01/24 12:12 600 MG Examination: GENERAL:Normal, HEENT:Normal, NECK:Normal, LUNGS:Normal, CVS:Normal, ABDOMEN:Normal, MSK:Normal, SKIN:Normal, NEURO:Normal, :Normal laboratory and microbiology Laboratory Tests 12/02/24 04:53 Test 12/02/24 04:53 Range/Units Serum Glucose 111 #H 74-106 mg/dL Problem List/Assessment/Plan Problem List/Assessment/Plan #1 acute mi s/p angio/stent: cont meds, needs repeat intervention today #2 ckd stage 3b: renal usg #3 dm: ssi #4 htn #5 djd right knee advance care planning-full code- time spent 19 mins Plan discussed with: Patient My Orders My Orders Orders - ALFA MADISON MD Procedure Category Date Status Time Basic Metabolic Panel LAB 12/03/24 Verified 06:00 Complete Blood Count LAB 12/03/24 Verified 06:00 Date of Service: December 02, 2024 Billing Provider: ALFA MADISON MD Common Visit Codes: [id number] INP/OBS CARE(HIGH) ALFA MADISON MD December 02, 2024 10:52
[2024-12-02] MEDS: ALPRAZolam 0.25 MG TAB PO PRN (21:51)
[2024-12-03] VITALS (13 sets, daily range): BP systolic 113–158; BP diastolic 50–86; PULSE 60–84; RESP 13–20; TEMP 97.1–98.5; O2SAT 95–99
[2024-12-03 06:07] LABS: Basophils # (auto) 0.1 10 ^3/uL (0-0.2); Basophils % (auto) 1.4 % (0.0-2.0); Eosinophils # (auto) 0.2 10 ^3/uL (0-0.8); Eosinophils % (auto) 2.4 % (0.0-7.0); Hematocrit 37.3 % (41.0-53.0); Hemoglobin 12.7 g/dL (13.5-17.5); Lymphocytes # (auto) 2.8 10 ^3/uL (0.4-5.4); Lymphocytes % (auto) 36.6 % (10.0-50.0); Mean Corpuscular Hemoglobin 29.9 pg (28.0-32.0); Monocytes # (auto) 1.2 10 ^3/uL (0-1.3); Monocytes % (auto) 15.6 % (0.0-12.0); Neutrophils # (auto) 3.4 10 ^3/uL (1.6-8.6); Nucleated Red Blood Cells % 0.2 %; Platelet Count (auto) 223 10^3/uL (140-450); Red Blood Cells 4.24 10^6/uL (4.5-5.90); Red Cell Distribution Width 13.8 % (11.8-14.3); White Blood Cell 7.7 10^3/uL (4.4-10.8)
[2024-12-03 06:32] LABS: Alanine Aminotransferase 33 U/L (7-40); Alkaline Phosphatase 64 U/L (46-116); Anion Gap 12 (5-15); BUN/Creatinine Ratio 12.8 (10.0-20.0); Calcium 10.3 mg/dL (8.7-10.4); Carbon Dioxide 21 mmol/L (20-31); Chloride 107 mmol/L (98-107); Potassium 4.3 mmol/L (3.5-5.1); Sodium 140 mmol/L (136-145); Total Protein 7.2 g/dL (5.7-8.2)
[2024-12-03 06:33] LABS: Albumin 4.3 g/dL (3.2-4.8)
[2024-12-03 06:36] LABS: Aspartate Aminotransferase 45 U/L (13-40); Blood Urea Nitrogen 25 mg/dL (9-23); Glucose 116 mg/dL (74-106)
[2024-12-03] MEDS: HYDROcodone-ACET 5/325MG TAB PO PRN (10:41)
[2024-12-03] MEDS: IODIXANOL 320MG/ML 100ML BTL IV ONE ×2 (12:45→14:37)
[2024-12-03] MEDS: VERAPAMIL 2.5MG/ML INJ 2ML VIAL IV ONE (12:51)
[2024-12-03] MEDS: HEPARIN SODIUM (PORCINE) 5000 UNITS/ML 1ML VIAL ONE (12:51)
[2024-12-03] MEDS: fentaNYL CITRATE 100 MCG/2 ML VL ONE (12:51)
[2024-12-03] MEDS: ANGIOMAX 250 MG VIAL IV ONE (12:51)
[2024-12-03] MEDS: SODIUM CHL 0.9% 50 ML ONE (12:52)
[2024-12-03] MEDS: LIDOCAINE 2%HCL (LOCAL ANESTH.) INJ 20ML MDV ONE (12:52)
[2024-12-03] MEDS ORDERED: MIDAZOLAM HCL 2MG/2ML 2ml VIAL (1mg/ml) ONE ×2 (12:52→14:02)
--- NOTE | 2024-12-03 14:49 | DVHOP2 ---
Operative Report - 2 Report Details Date: 12/03/24 Preop Diagnosis: Diagonal stenosis. Residual lesion RCA. Postop Diagnosis: Successful PTCA and stenting of right coronary artery. Successful PTCA stenting and ultrasound evaluation of diagonal artery. Surgeon: Tiffany Aviles MD Anesthesiologist: Conscious sedation. Anesthesia: Mac, Local Consent: The patient was informed of the risks and benefits of the procedure. These include but are not limited to complications of anesthesia, postoperative infection, incomplete relief of symptoms, recurrence of symptoms, damage to blood vessels, nerves and tendons, deep venous thrombosis, pulmonary embolism and possible need for repeat surgery in the future. Complications: No complications. Estimated Blood Loss: 5 cc. Findings: Significant stenosis of diagonal artery and residual lesion the proximal RCA. Indications for Surgery: Recent myocardial infarction. Myocardial ischemia. Significant CAD. Name of Procedure Performed Left heart catheterization. Bilateral cine coronary angiography. Left ventriculography. PTCA and stenting of the RCA. PTCA stenting of diagonal artery. Intravascular ultrasound evaluation of the diagonal artery. Shockwave lithotripsy of the diagonal artery. Procedure Details Procedure Details: Prior local anesthesia with 2% lidocaine to the right groin and full informed consent obtained patient was prepped and draped in usual fashion followed by placement of a six Lebanese sheath into the right femoral artery. Placement of a three five EBU guide was then used to perform angioplasty on the diagonal. Lithotripsy and stenting of the diagonal artery as will be delineated. A AL1 was used to perform angioplasty on the RCA. Hemodynamics: Aortic blood pressure was 110/70 ventriculography and end- diastolic pressure measurements were not obtained. Coronary anatomy the RCA is a large vessel has moderate plaquing in its proximal portion. There is a residual lesion in the proximal RCA. This is proximal to the previous stent placed. It is more notable and hazy in today's evaluation. Pre-existing stenosis of the diagonal artery was also addressed. Three five EBU guide was placed into the left main. The wire used was a choice PT floppy to anterior the diagonal artery. There was significant calcification stenosis. You were able to place a 2-0 balloon to pre dilate however we would not be able to pass a stent henceforth we used a shockwave balloon for lithotripsy. We were not able to pass the balloon for which we then used a Guidezilla to help approximate the vessel after a high pressure balloon inflation. There was rupture of a standard two five balloon for which we used a noncompliant high- pressure balloon. We are then able to approximate the Guidezilla and subsequently the shockwave lithotripsy balloon. A two 5 x 15 shockwave balloon was used and ten treatments were performed. We were then able to stent with a two 5 x 8 mm stent at 20 atmospheres. We then removed the guide and placed a AL1 guide into the RCA noting a residual lesion in the proximal RCA with haziness. Possibly a proximal stent edge dissection from last week's stenting. We then placed a 3-0 by 15 mm stent overlapping the initial stent to approximately 18 atmospheres. There was excellent antegrade flow without thrombus formation and/or dissection. A groin shot was obtained noting excellent position for a Perclose device closure. Impression: Successful PTCA and stenting of the diagonal artery subsequent to shockwave therapy and coronary lithotripsy. Successful PTCA and stenting of proximal RCA stent edge dissection. Recommendations continue dual antiplatelet therapy. Risk factor modification to continue. Condition Good Disposition Still a Patient Date of Service: December 03, 2024 Billing Provider: TIFFANY AVILES Sr., MD Cardiology Common Codes: [id number] INP/OBS CARE (High) Cardiology Procedure Codes: 25207-IEZAAM VESSEL W/I VASC FAM, 40768 -PTCA W/STENT PLACEMENT, 87091-OSAK ADD CORONARY BRANCH (Coronary lithotripsy.) TIFFANY AVILES Sr., MD December 03, 2024 14:49
--- NOTE | 2024-12-03 15:04 | DVHPN2 ---
Progress Note Date Seen: December 03, 2024 Medical Necessity Reason Pt with a Central, PICC or Fol: No Subjective Patient reports: No new complaints Review of Systems: HEENT:Normal, CVS:Normal, RESPIRATORY:Normal, GI:Normal, :Normal, MSK:Normal, NEURO:Normal Objective vital signs Vital Sign Date Time Temp Pulse Resp B/P (MAP) Pulse Ox O2 Delivery O2 Flow Rate FiO2 12/03/24 13:00 97.6 69 18 147/86 (106) 99 97.6 12/03/24 08:00 Room Air* 0 21 Total Intake and Output 12/02/24 12/02/24 12/03/24 14:59 22:59 06:59 Intake Total 100 ml 0 ml Balance 100 ml 0 ml medications Current Medications Medications Dose Ordered Sig/Antoinette Route Start Time Stop Time Status Last Admin Dose Admin Nitroglycerin 0.4 mg Q5MINP PRN SL 11/27/24 00:30 Morphine Sulfate 2 mg Q30M PRN IV 11/27/24 00:30 Clopidogrel Bisulfate 75 mg DAILY PO 11/27/24 10:00 12/02/24 09:03 75 MG Carvedilol 3.125 mg BID PO 11/27/24 10:00 12/03/24 10:03 3.125 MG Lisinopril 2.5 mg DAILY PO 11/27/24 10:00 12/03/24 10:03 2.5 MG Aspirin 81 mg DAILY PO 11/27/24 10:00 12/03/24 10:02 81 MG Atorvastatin Calcium 40 mg DAILY PO 11/27/24 10:00 12/03/24 10:03 40 MG Alprazolam 0.125 mg TID PRN PO 11/27/24 00:30 12/02/24 21:51 0.125 MG Magnesium Hydroxide 30 ml DAILY PRN PO 11/27/24 00:30 Pantoprazole Sodium 40 mg DAILY PO 11/27/24 10:00 12/03/24 10:02 40 MG Zolpidem Tartrate 5 mg HS PO 11/27/24 22:00 12/02/24 21:51 5 MG Dextrose 50 ml UD PRN IV 11/28/24 13:00 Insulin Human Regular ACHS SC 11/28/24 17:00 12/02/24 21:45 2 UNITS Diagnostic Test (Pha) 1 strip ACHS 11/28/24 17:00 12/03/24 06:26 1 STRIP Sodium Chloride 1,000 ml @ 60 mls/hr [id number] IV 11/30/24 16:00 12/01/24 09:53 60 MLS/HR Acetaminophen/ Hydrocodone Bitart 1 tab Q6HPRN PRN PO 12/03/24 10:00 12/03/24 10:41 1 TAB Examination: GENERAL:Normal, HEENT:Normal, NECK:Normal, LUNGS:Normal, CVS:Normal, ABDOMEN:Normal, MSK:Normal, SKIN:Normal, NEURO:Normal, :Normal laboratory and microbiology Laboratory Tests 12/03/24 05:46 Test 12/03/24 05:46 Range/Units Serum Glucose 116 H 74-106 mg/dL Problem List/Assessment/Plan Problem List/Assessment/Plan #1 acute mi s/p angio/stent: cont meds, s/p repeat intervention today #2 ckd stage 3b: renal usg #3 dm: ssi #4 htn #5 djd right knee advance care planning-full code- time spent 19 mins Plan discussed with: Other (rn) My Orders My Orders Orders - ALFA MADISON MD Procedure Category Date Status Time Hydrocodone-Acet PHA 12/03/24 In Process 5/325mg Tab ([place] 10:00 Basic Metabolic Panel LAB 12/04/24 Verified 06:00 Dietary Evaluation Review Comments: 1) [facility] + renal specific 50gm as medically feasible 2) Continue current plan of care Expected Outcomes/Goals: pt will meet 75% estimated needs fu 2-3 days Date of Service: December 03, 2024 Billing Provider: ALFA MADISON MD Common Visit Codes: [id number] INP/OBS CARE(HIGH) ALFA MADISON MD December 03, 2024 15:04
[2024-12-04 01:00] VITALS: BP 116/58; PULSE 62; RESP 18; TEMP 97.9; O2SAT 100
[2024-12-04 05:00] VITALS: BP_SYST 143; BP_SYST 161; BP_DIAS 84; BP_DIAS 86; PULSE 74; RESP 18; TEMP 97.9; O2SAT 96; O2SAT 99
[2024-12-04 07:32] LABS: Chloride 106 mmol/L (98-107); Potassium 4.3 mmol/L (3.5-5.1); Sodium 139 mmol/L (136-145)
[2024-12-04 07:33] LABS: Anion Gap 12 (5-15); Carbon Dioxide 21 mmol/L (20-31)
[2024-12-04 07:38] LABS: BUN/Creatinine Ratio 13.4 (10.0-20.0)
[2024-12-04 07:44] LABS: Blood Urea Nitrogen 27 mg/dL (9-23); Glucose 161 mg/dL (74-106)
[2024-12-04 08:09] VITALS: RESP 18; O2SAT 97
--- NOTE | 2024-12-04 08:11 | ECG ---
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
[2024-12-04 09:00] VITALS: BP 140/70; PULSE 69; RESP 16; TEMP 98.4; O2SAT 99
--- NOTE | 2024-12-04 09:16 | DVHPN2 ---
Consult Progress Note Date Seen: December 04, 2024 Subjective Review of Systems: CVS:Normal, RESPIRATORY:Normal, NEURO:Normal Objective vital signs Vital Sign Date Time Temp Pulse Resp B/P (MAP) Pulse Ox O2 Delivery O2 Flow Rate FiO2 12/04/24 09:00 98.4 69 16 140/70 (93) 99 98.4 12/04/24 08:09 Room Air* 0 21 Total Intake and Output 12/03/24 12/03/24 12/04/24 15:00 23:00 07:00 Intake Total 240 ml 200 ml Balance 240 ml 200 ml medications Current Medications Medications Dose Ordered Sig/Antoinette Route Start Time Stop Time Status Last Admin Dose Admin Nitroglycerin 0.4 mg Q5MINP PRN SL 11/27/24 00:30 Morphine Sulfate 2 mg Q30M PRN IV 11/27/24 00:30 Clopidogrel Bisulfate 75 mg DAILY PO 11/27/24 10:00 12/04/24 08:49 75 MG Carvedilol 3.125 mg BID PO 11/27/24 10:00 12/04/24 08:51 3.125 MG Lisinopril 2.5 mg DAILY PO 11/27/24 10:00 12/04/24 08:49 2.5 MG Aspirin 81 mg DAILY PO 11/27/24 10:00 12/04/24 08:48 81 MG Atorvastatin Calcium 40 mg DAILY PO 11/27/24 10:00 12/04/24 08:51 40 MG Alprazolam 0.125 mg TID PRN PO 11/27/24 00:30 12/02/24 21:51 0.125 MG Magnesium Hydroxide 30 ml DAILY PRN PO 11/27/24 00:30 Pantoprazole Sodium 40 mg DAILY PO 11/27/24 10:00 12/04/24 08:49 40 MG Zolpidem Tartrate 5 mg HS PO 11/27/24 22:00 12/03/24 21:44 5 MG Dextrose 50 ml UD PRN IV 11/28/24 13:00 Insulin Human Regular ACHS SC 11/28/24 17:00 12/03/24 21:47 2 UNITS Diagnostic Test (Pha) 1 strip ACHS 11/28/24 17:00 12/04/24 06:04 1 STRIP Sodium Chloride 1,000 ml @ 60 mls/hr [id number] IV 11/30/24 16:00 12/04/24 04:59 60 MLS/HR Acetaminophen/ Hydrocodone Bitart 1 tab Q6HPRN PRN PO 12/03/24 10:00 12/03/24 23:26 1 TAB Examination: LUNGS:Normal, CVS:Normal, NEURO:Normal laboratory and microbiology Laboratory Tests 12/04/24 06:13 12/03/24 05:46 Test 12/04/24 06:13 Range/Units Serum Glucose 161 H 74-106 mg/dL Problem List/Assessment/Plan Problem List/Assessment/Plan Acute ST-Elevation Myocardial Infarction status post PCI with staged procedure Severe coronary artery disease status post PTCA and stenting of the RCA x 4 JOSE M Hypertension Dyslipidemia Peripheral neuropathy Vps-voacqnt-nzoxggxgt diabetes mellitus CKD stage IIIb Plan/Recommendations (Dr. Aviles) * Echocardiogram revealed LVEF 60% with normal RV function * Dual-antiplatelet therapy and lipid lowering agent * Blood pressure control including a beta-mauro * Scheduled for Follow-up with Dr. Aviles on 12/17/2024 at 1000 * Strongly advised on risk factor modifications and lifestyle changes There is no further cardiac work-up indicated at this time. Kindly call for any questions or concerns. Thank you for allowing us to participate in this patient's care. This medical document was created using an electronic medical record system with voice recognition software and computerized dictation system. Although this document has been carefully reviewed, there might still be some phonetic and typographical errors. Occasional wrong-word or ``sound-alike�� substitutions may have occurred due to the inherent limitations of voice recognition software. These areas are purely typographical due to imperfections of the software programs and do not reflect any compromise in the patient's medical care. Please read the chart carefully and recognize, using context, where these substitutions have occurred. Plan discussed with: Patient, Other Dietary Evaluation Review Comments: 1) Advance to [facility] 75 + renal specific 50gm as medically feasible 2) Continue current plan of care Expected Outcomes/Goals: pt will meet 75% estimated needs fu 2-3 days Date of Service: December 04, 2024 Billing Provider: IVY REAGAN Cardiology Common Codes: [id number] HOSP CARE([facility] IVY REAGAN December 04, 2024 09:16
--- NOTE | 2024-12-04 12:46 | DVHDS2 ---
Discharge Summary Date of Admission November 27, 2024 at 00:18 Date of Discharge: December 04, 2024 Admitting Diagnosis #1 acute mi #2 ckd stage 3b #3 dm #4 htn #5 djd right knee Labs/Diagnostic Data: Laboratory Results Test 12/04/24 12:11 12/04/24 06:13 12/03/24 05:46 12/02/24 04:53 POC Glucose 212 mg/dl (70-106) Sodium Level 139 mmol/L (136-145) Potassium Level 4.3 mmol/L (3.5-5.1) Chloride Level 106 mmol/L (98-107) Carbon Dioxide Level 21 mmol/L (20-31) Anion Gap 12 (5-15) Blood Urea Nitrogen 27 mg/dL (9-23) Creatinine 2.01 mg/dL (0.700-1.30) Glomerular Filtration Rate Calc 34 mL/min (>90) BUN/Creatinine Ratio 13.4 (10.0-20.0) Serum Glucose 161 mg/dL (74-106) Calcium Level 10.0 mg/dL (8.7-10.4) White Blood Count 7.7 10^3/uL (4.4-10.8) Red Blood Count 4.24 10^6/uL (4.5-5.90) Hemoglobin 12.7 g/dL (13.5-17.5) Hematocrit 37.3 % (41.0-53.0) Mean Corpuscular Volume 88.0 fL (80.0-100.0) Mean Corpuscular Hemoglobin 29.9 pg (28.0-32.0) Mean Corpuscular Hemoglobin Concent 34.0 g/dL (32.0-36.0) Red Cell Distribution Width 13.8 % (11.8-14.3) Platelet Count 223 10^3/uL (140-450) Mean Platelet Volume 9.6 fL (6.9-10.8) Neutrophils (%) (Auto) 44.0 % (37.0-80.0) Lymphocytes (%) (Auto) 36.6 % (10.0-50.0) Monocytes (%) (Auto) 15.6 % (0.0-12.0) Eosinophils (%) (Auto) 2.4 % (0.0-7.0) Basophils (%) (Auto) 1.4 % (0.0-2.0) Neutrophils # (Auto) 3.4 10 ^3/uL (1.6-8.6) Lymphocytes # (Auto) 2.8 10 ^3/uL (0.4-5.4) Monocytes # (Auto) 1.2 10 ^3/uL (0-1.3) Eosinophils # (Auto) 0.2 10 ^3/uL (0-0.8) Basophils # (Auto) 0.1 10 ^3/uL (0-0.2) Nucleated Red Blood Cells 0.2 % Total Bilirubin 1.0 mg/dL (0.2-1.0) Aspartate Amino Transferase (AST) 45 U/L (13-40) Alanine Aminotransferase (ALT) 33 U/L (7-40) Alkaline Phosphatase 64 U/L (46-116) Total Protein 7.2 g/dL (5.7-8.2) Albumin 4.3 g/dL (3.2-4.8) Prothrombin Time 11.4 sec (9.3-11.8) Prothrombin Time INR 1.08 (0.9-1.15) Activated Partial Thromboplast Time 29.5 SEC (24.5-34.5) Test 12/01/24 09:17 11/30/24 12:00 11/27/24 07:12 11/26/24 23:07 Hemoglobin A1c 7.7 % A1C (<5.7) Urine Color Yellow (Yellow) Urine Clarity Clear (Clear) Urine pH 6.0 (5.0-9.0) Urine Specific Robson 1.014 (1.001-1.035) Urine Protein Negative (Negative) Urine Ketones Negative (Negative) Urine Blood Negative /uL (Negative) Urine Nitrite Negative (Negative) Urine Bilirubin Negative (Negative) Urine Urobilinogen Normal mg/dL (Negative) Urine Leukocyte Esterase Negative /uL (Negative) Urine RBC <1 /hpf (0 - 3) Urine Microscopic WBC 1 /HPF (0-3) Urine Squamous Epithelial Cells Few /hpf (<5) Urine Bacteria None seen /hpf (None Seen) Urine Glucose Normal mg/dL (Normal) Troponin I High Sensitivity 8348 ng/L (</=54) Triglycerides Level 121 mg/dL (< 150) Cholesterol Level 148 mg/dL (< 200) LDL Cholesterol 77 mg/dL (< 100) HDL Cholesterol 54 mg/dL (40-59) Thyroid Stimulating Hormone (TSH) 0.96 uIU/mL (0.55-4.78) Lactic Acid Level 1.1 mmol/L (0.4-2.0) Other Laboratory Tests 12/04/24 06:13 12/03/24 05:46 Brief Hx & Hospital Course: This is a 79 years old male with past medical history hypertension, diabetes came to [facility] because of chest pain for four day. The patient's symptoms progressively get worse and with. substernal chest pain radiating to both shoulder and arm. The patient rates his pain 8/10 associated with shortness for breath, diaphoresis. The patient came to emergency room department via EMS. EKG showed ST change with ST-elevation PR. The patient was given aspirin and underwent successful PTCA and stenting of the right coronary artery disease. After that the patient also had another angiogram done yesterday with successful PTCA stenting and ultrasound evaluation of diagonal artery. The patient's echo showed: Left atrial enlargement with aortic root enlargement. Dilation of the sinuses of Valsalva. Mild aortic sclerosis without stenosis. Left ventricular function is preserved at 60% with normal RV function. Doppler reveals mild mitral insufficiency. No pericardial effusion masses or vegetations. The patient is stable today. The patient did not complain of any chest pain. The patient had been ambulate without shortness for breath or chest pain. Contract Law Specialist cleared the patient to be discharged home. So I am going to discharge him home. Advised him to follow up with primary care physician 1-2 weeks. Follow up with Dr. Rodriguez, limehouse worker for further follow up of his heart problem. Activity as tolerated. Diet per home diet. Physical exam: HEENT: Normocephalic atraumatic pupils equal react to light and accommodation. Extraocular muscles intact, conjunctiva pink, oropharynx moist, no thrush, no exudate. Lymphatic: No lymphadenopathy Cardiovascular exam: S1, S2 was heard. No murmurs, rubs, gallops Lung: Clear on auscultation bilaterally, no wheeze, rale, rhonchi. GI: Abdominal soft, nondistended, nontenderness, positive bowel sounds. Extremity: No crepitus, cyanosis, edema. Pedal pulses present bilateral. Full range of motion. Skin: Normal turgor, no rash. Psych: Alert, oriented x3. Neurology: No focal deficits, cranial nerve II to XII grossly intact. This medical document was created using an electronic medical record system with [employer] direct computerized dictation system. Although this document has been carefully reviewed, there may still be some phonetic and typographical errors. These areas are purely typographical due to imperfections of the software programs, and do not reflect any compromise in the patient's medical care. Condition at Discharge: Stable Final Diagnosis/Problems List #[address]-elevation mi with successful PTCA and stenting of right coronary artery and successful PTCA stenting and ultrasound evaluation of diagonal artery. #2 ckd stage 3b #3 dm #4 htn #5 djd right knee Discharge Disposition: Home Discharge Statement: "Patient was advised to return to the ER or call 911 if any headaches, dizziness, shortness of breath, chest pain, abdominal pain, bleeding, fevers, or worsening of medical condition. Patient was counseled about treatment plan, medications, possible side effects, patient�verbalized understanding. All questions were answered to the best of my ability. This discharge took greater then 30 minutes in planning, reviewing documentation, counseling the patient, and discussing with other team members." ASSESSMENT ASSESSMENT Assessment Successful PTCA and stenting of right coronary artery. Successful PTCAstenting and ultrasound evaluation of diagonal artery. Date of Service: December 04, 2024 Billing Provider: MARCO LOBATO MD Common Visit Codes: 73168-KVD/OBS DISCH DAY >30min MARCO OLBATO MD December 04, 2024 12:46
[2024-12-04] MEDS ORDERED: CLOP75TA70 PO (12:48)
[2024-12-04] MEDS ORDERED: LISI2.5T47 PO (12:48)
[2024-12-04] MEDS ORDERED: ATOR-507 PO (12:48)
[2024-12-04] MEDS ORDERED: CARV-214 PO (12:48)
[2024-12-04] MEDS ORDERED: ASPI-543 PO (12:48)
[2024-12-04 13:00] VITALS: BP 146/73; PULSE 72; RESP 18; TEMP 98.7; O2SAT 98
[2024-12-04 14:17] VITALS: BP 140/70; PULSE 69; TEMP 36.9
== END 2024-12-04 16:30 | disposition home or self-care (01) | DRG 323 ==
LOC: ER 22:59 → EDBD 22:59 → OVERFLOW 11-27 00:18 → TELE-WESTW 11-27 01:21
PROVIDERS: ADMIT Internal Medicine; ATTEND Internal Medicine
PROC: 027034Z Dilation of Coronary Artery, One Artery with Drug-eluting Intraluminal Device, Percutaneous Approach (ICD-10-PCS; principal; 2024-11-26)
PROC: 4A023N7 Measurement of Cardiac Sampling and Pressure, Left Heart, Percutaneous Approach (ICD-10-PCS; 2024-11-26)
PROC: B211YZZ Fluoroscopy of Multiple Coronary Arteries using Other Contrast (ICD-10-PCS; 2024-11-26)
PROC: B215YZZ Fluoroscopy of Left Heart using Other Contrast (ICD-10-PCS; 2024-11-26)
PROC: 02F03ZZ Fragmentation in Coronary Artery, One Artery, Percutaneous Approach (ICD-10-PCS; 2024-12-03)
PROC: 027135Z Dilation of Coronary Artery, Two Arteries with Two Drug-eluting Intraluminal Devices, Percutaneous Approach (ICD-10-PCS; 2024-12-03)
PROC: B211YZZ Fluoroscopy of Multiple Coronary Arteries using Other Contrast (ICD-10-PCS; 2024-12-03)
PROC: B215YZZ Fluoroscopy of Left Heart using Other Contrast (ICD-10-PCS; 2024-12-03)
DX: I21.19 ST elevation (STEMI) myocardial infarction involving other coronary artery of inferior wall (principal); N17.0 Acute kidney failure with tubular necrosis; N18.32 Chronic kidney disease, stage 3b; I25.10 Atherosclerotic heart disease of native coronary artery without angina pectoris; M17.11 Unilateral primary osteoarthritis, right knee; E11.22 Type 2 diabetes mellitus with diabetic chronic kidney disease; I12.9 Hypertensive chronic kidney disease with stage 1 through stage 4 chronic kidney disease, or unspecified chronic kidney disease; E11.42 Type 2 diabetes mellitus with diabetic polyneuropathy; G89.29 Other chronic pain; E78.5 Hyperlipidemia, unspecified; Z79.899 Other long term (current) drug therapy
CPT/HCPCS: 36415; 71045; 76775; 80048; 80053; 80061; 81001; 82962; 83036; 84443; 84484; 85025; 85610; 85730; 92928; 92941; 92972; 93005; 93306; 93454; 93458; 96374; 96375; 99152; 99291; C1874; C1887; G0378; J1815; J2250; Q9967

== ENCOUNTER 2024-12-14 09:40 | Emergency (ER) | payer MEDICARE, OTHER ==
[~2024-12-14] VITALS: Ht 172.7 cm; Wt 75.0 kg
[~2024-12-14 09:40] MED LIST: ASPI-543 PO; ATOR-507 PO; CARV-214 PO; CLOP75TA70 PO; GABA-1250 PO; LISI2.5T47 PO
--- NOTE | 2024-12-14 11:52 | ED.PDOC ---
Musculoskeletal HPI Comments 79-year-old male brought in by EMS presents with a chief complaint of left foot pain x onset this morning. Patient states that this morning he woke up and got out of bed and felt pain to the medial aspect of his metatarsal fat pad. Patient denies any injuries or trauma prior to onset of symptoms. No other symptoms or modifying factors present at this time. Chief Complaint: Lower Extremity Time Seen by MD: 11:22 Reviewed Notes: Nurses Notes, Medications, Allergies Allergies: Coded Allergies: NO KNOWN ALLERGIES (Unverified , 09/03/22) Home Meds Active Scripts Diclofenac Sodium (Topical) (Voltaren Arthritis Pain) 1 % Gel, 1 APPLIC EX QID for 30 Days, #60 GRAMS 0 Refills Prov:KAITLYNN KOWALSKI RO[address] [employer]REIGHT CONDUCTOR 12/14/24 Atorvastatin Calcium (Lipitor) 40 Mg Tab, 1 TAB PO QPM, #90 TAB 1 Refill Prov:MARCO LOBATO MD 12/04/24 Lisinopril (Lisinopril) 2.5 Mg Tab, 2 TAB PO DAILY, #60 TAB 5 Refills Prov:MARCO LOBATO MD 12/04/24 Carvedilol (COREG) 3.125 Mg Tab, 3.125 MG PO BID, #60 TAB 9 Refills Prov:MARCO LOBATO MD 12/04/24 Aspirin (Aspir-Low) 81 Mg Tab, 81 MG PO DAILY, #90 TAB 5 Refills Prov:MARCO LOBATO MD 12/04/24 Clopidogrel Bisulfate (CLOPIDOGREL) 75 Mg Tab, 75 MG PO DAILY, #30 TAB 9 Refills Prov:MARCO LOBATO MD 12/04/24 Reported Medications Gabapentin (Gabapentin) 300 Mg Cap, 300 MG PO TID for 30 Days, MG 11/28/24 Information Source: Patient Mode of Arrival: EMS Location: Left Extremity Location: Foot Timing: Hours Prehospital treatment: Meat Stocker Severity: Moderate Able to Move Extremity: Yes Bear Weight: Fully Pain: Moderate Hand Dominance: Right Mechanism: Spontaneous Circumstances: Spontaneous Onset of Symptoms: Spontaneous Symptoms: Pain DVT Risk Factors: NONE Last Tetanus: UTD Associated signs and symptoms: Foot pain Past Medical History PAST MEDICAL HISTORY: DM, HTN Surgical History: Denies all surgeries Family History Family History: Reviewed,noncontributory to illness Social History Smoker: Non-Smoker Alcohol: Denies ETOH Use Drugs: Denies Drug Use Lives In: Home Constitutional: denies: chills, diaphoresis, fatigue, fever, malaise, sweats, weakness, others EENTM: denies: blurred vision, double vision, ear bleeding, ear discharge, ear drainage, ear pain, ear ringing, eye pain, eye redness, hearing loss, mouth pain, mouth swelling, nasal discharge, nose bleeding, nose congestion, nose pain, photophobia, tearing, throat pain, throat swelling, voice changes, others Respiratory: denies: cough, hemoptysis, orthopnea, SOB at rest, shortness of breath, SOB with excertion, stridor, wheezing, others Cardiovascular: denies: chest pain, dizzy spells, diaphoresis, Dyspnea on exertion, edema, irregular heart beat, left arm pain, lightheadedness, palpitations, PND, syncope, others Gastrointestinal: denies: abdomen distended, abdominal pain, blood streaked bowels, constipated, diarrhea, dysphagia, difficulty swallowing, hematemesis, melena, nausea, poor appetite, poor fluid intake, rectal bleeding, rectal pain, vomiting, others Genitourinary: denies: burning, dysuria, flank pain, frequency, hematuria, incontinence, penile discharge, penile sore, pain, testicle pain, testicle swelling, urgency, others Neurological: denies: dizziness, fainting, headache, left sided numbness, left sided weakness, numbness, paresthesia, pre-existing deficit, right sided numbness, right sided weakness, seizure, speech problems, tingling, tremors, weakness, others Musculoskeletal: reports: muscle pain; denies: back pain, gout, joint pain, joint swelling, muscle stiffness, neck pain, others Integumetry: denies: bruises, change in color, change in hair/nails, dryness, laceration, lesions, lumps, rash, wounds, others Allergic/Immunocompromised: denies: Difficulty Healing, Frequent Infections, Hives, Itching, others Hematologic/Lymphatic: denies: anemia, blood clots, easy bleeding, easy bruising, swollen glands, others Endocrine: denies: excessive hunger, excessive sweating, excessive thirst, excessive urination, flushing, intolerance to cold, intolerance to heat, unexplained weight gain, unexplained weight loss, others Psychiatric: denies: anxiety, bipolar disorder, depression, hopeless, panic disorder, schizophrenia, sleepless, suicidal, others All Other Systems: Reviewed and Negative Physical Exam General Appearance: No Apparent Distress, Normal HEENT: Normal ENT Inspection, Pharynx Normal, TMs Normal Neck: Full Range of Motion, Non-Tender, Normal, Normal Inspection Respiratory: Chest Non-Tender, Lungs Clear, No Accessory Muscle Use, No Respiratory Distress, Normal Breath Sounds Cardiovascular: No Edema, No JVD, No Murmur, No Gallop, Normal Peripheral Pulses, Regular Rate/Rhythm Breast Exam: Deferred Gastrointestinal: No Organomegaly, Non Tender, No Pulsatile Mass, Normal Bowel Sounds, Soft Genitalia: Deferred Pelvic: Deferred Rectal: Deferred Extremities: No calf tenderness, Normal capillary refill, Normal inspection, Normal range of motion, Non-tender, No pedal edema Musculoskeletal : Apperance: Normal Neurologic: Alert, amusement park worker II-XII nml as Tested, No Motor Deficits, Normal Affect, Normal Mood, No Sensory Deficits Cerebellar Function: Normal Reflexes: Normal Skin: Dry, Normal Color, Warm Lymphatic: No Adenopathy Was a procedure done? Was a procedure done?: No Images 1 - No gross abnormality on inspection. No ecchymosis no open wounds. Localized TTP. Able to ambulate without assistive devices. Full passive and active range of motion. Dorsiflexion plantar flexion strong. Dorsalis pedis 2+ and cap refill less than 3 seconds Differential Diagnosis EXT Differential Diagnosis: Sprain, Other X-Ray, Labs, Meds, VS Vital Signs Date Time Temp Pulse Resp B/P (MAP) Pulse Ox O2 Delivery O2 Flow Rate FiO2 12/14/24 12:40 98.7 78 16 158/74 (102) 97 98.7 12/14/24 12:40 87 17 97 Room Air 12/14/24 09:56 98.7 89 18 170/80 (110) 98 98.7 X-Ray, Labs, Meds, VS Comment On reevaluation, patient had symptomatic improvement. Patient is stable for discharge at this time. External notes reviewed. Test results and diagnostic imaging interpreted. All diagnostic findings, discharge care, education and instructions provided Follow-up with PCP in 2 to 3 days. Advised patient he can benefit from podiatry consultation Patient verbalized understanding and agreed to treatment plan Vital signs stable, afebrile, no acute distress noted Patient ambulatory with strong steady gait Advised to return precautions for any new or worsening symptoms, return to ER immediately for re-evaluation Patient is aware that the purpose of this visit was for an acute medical emergency requiring emergent stabilization. Chronic conditions, including malignancies have not been ruled out. Patient is instructed to follow up with PCP as directed and discharge instructions for continued care and workup. If unable to arrange follow-up, patient is to return to the emergency department for reassessment. Patient (parent or legal guardian if applicable) was given verbal and written discharge instructions and acknowledges understanding. Time of 1ST Reevaluation: 11:52 Reevaluation 1ST: Improved Patient Education/Counseling: Diagnosis, Treatment, Need For Follow Up Family Education/Counseling: No Family Present Departure 1 Departure Time of Disposition: 12:25 Impression: Primary Impression: Foot pain Qualified Codes: M79.672 - Pain in left foot Additional Impression: Hallux valgus Qualified Codes: M20.12 - Hallux valgus (acquired), left foot Disposition: HOME / SELF CARE / HOMELESS Condition: Fair e-Prescriptions Diclofenac Sodium (Topical) (Voltaren Arthritis Pain) 1 % Gel 1 APPLIC EX QID for 30 Days, #60 GRAMS 0 Refills Prov: KAITLYNN KOWALSKI RO[address] [employer] CONDUCTOR 12/14/24 Critical Care Note Critical Care Time?: No Stability Stability form required: No Heart Score Heart Score: Heart Score Response (Comments) Value History N/A 0 EKG N/A 0 Age >65 2 Risk Factors N/A 0 Troponin N/A 0 Total 2 I personally scribed for KAITLYNN KOWALSKI NP ([email or web address]) on 12/14/24 at 11:52. Electronically submitted by Rj Lopez ([email or web address]). KAITLYNN [address] [employer] CONDUCTOR December 14, 2024 11:52
--- NOTE | 2024-12-14 12:11 | DVH ---
EXAM: XY L FOOT 3 VIEW XRAY HISTORY: r/o fracture COMPARISON: None TECHNIQUE: Three views of the left foot were performed. FINDINGS: No acute fracture or dislocation are identified about the left foot. IMPRESSION: 1. No acute fracture of the left foot. 2. Hallux valgus.
[2024-12-14] MEDS ORDERED: DICL1GEL59 EX (12:26)
[2024-12-14 12:40] VITALS: BP 158/74; PULSE 87; RESP 17; TEMP 98.7; O2SAT 97
== END 2024-12-14 12:42 | disposition home or self-care (01) ==
LOC: EDBD 09:40 → ER 09:42
DX: M20.12 Hallux valgus (acquired), left foot (principal); M79.672 Pain in left foot; E11.9 Type 2 diabetes mellitus without complications; I10 Essential (primary) hypertension; Z79.899 Other long term (current) drug therapy
CPT/HCPCS: 73630

== ENCOUNTER 2024-12-31 12:22 | Outpatient (CLI) | payer MEDICARE, OTHER ==
[~2024-12-31 12:22] MED LIST changes: +DICL1GEL59 EX
[2024-12-31 12:42] LABS: Basophils # (auto) 0.1 10 ^3/uL (0-0.2); Basophils % (auto) 1.1 % (0.0-2.0); Eosinophils # (auto) 0.5 10 ^3/uL (0-0.8); Eosinophils % (auto) 6.3 % (0.0-7.0); Hematocrit 35.6 % (41.0-53.0); Hemoglobin 11.9 g/dL (13.5-17.5); Lymphocytes # (auto) 2.4 10 ^3/uL (0.4-5.4); Lymphocytes % (auto) 28.9 % (10.0-50.0); Mean Corpuscular Hemoglobin 29.7 pg (28.0-32.0); Mean Corpuscular Hgb Conc. 33.4 g/dL (32.0-36.0); Mean Corpuscular Volume 88.8 fL (80.0-100.0); Monocytes % (auto) 11.8 % (0.0-12.0); Neutrophils # (auto) 4.4 10 ^3/uL (1.6-8.6); Neutrophils % (auto) 51.9 % (37.0-80.0); Platelet Count (auto) 243 10^3/uL (140-450); Red Cell Distribution Width 14.6 % (11.8-14.3); White Blood Cell 8.4 10^3/uL (4.4-10.8)
[2024-12-31 13:12] LABS: Alanine Aminotransferase 22 U/L (7-40); Albumin 4.4 g/dL (3.2-4.8); Alkaline Phosphatase 79 U/L (46-116); Anion Gap 6 (5-15); Aspartate Aminotransferase 27 U/L (13-40); BUN/Creatinine Ratio 8.9 (10.0-20.0); Bilirubin, Total 0.6 mg/dL (0.2-1.0); Blood Urea Nitrogen 18 mg/dL (9-23); Calcium 10.3 mg/dL (8.7-10.4); Carbon Dioxide 26 mmol/L (20-31); Cholesterol 127 mg/dL (< 200); HDL Cholesterol 55 mg/dL (40-59); LDL Cholesterol 54 mg/dL (< 100); Potassium 4.4 mmol/L (3.5-5.1); Sodium 142 mmol/L (136-145); Total Protein 7.2 g/dL (5.7-8.2); Triglycerides 93 mg/dL (< 150)
[2024-12-31 13:13] LABS: Chloride 110 mmol/L (98-107)
[2024-12-31 13:14] LABS: Glucose 147 mg/dL (74-106)
== END 2024-12-31 17:00 | disposition home or self-care (01) ==
LOC: LAB 12:22
PROVIDERS: ATTEND Internal Medicine
DX: N17.0 Acute kidney failure with tubular necrosis (principal); I25.10 Atherosclerotic heart disease of native coronary artery without angina pectoris; I21.19 ST elevation (STEMI) myocardial infarction involving other coronary artery of inferior wall; Z79.899 Other long term (current) drug therapy
CPT/HCPCS: 36415; 80053; 80061; 84439; 84443; 85025

== ENCOUNTER 2025-03-31 12:38 | Inpatient (IN) | payer OTHER, MEDICARE ==
[~2025-03-31] VITALS: Ht 167.6 cm; Wt 68.0 kg
[2025-03-31 12:38] VITALS: TEMP 98.4
--- NOTE | 2025-03-31 12:59 | ED.PDOC ---
HPI Comments 79-year-old male who presents to the ED via EMS for chief complaint of chest pain. Patient states he has been having chest pain for the past two days rating the the pain 5/10. Patient states the pain today was out 8 of 10 and describes the pain as a elephant sitting on his chest. Patient states that he had an CO one month prior and states the chest pain felt similar today and called EMS. EMS arrived on scene and patient notes that he took four aspirin 81 mg tabs prior to EMS arrival. Patient was also given 0.4 NTG by EMS and states his pain improved to a 3/10 after afterwards. Patient was brought to the ED without any other symptoms or complaints. Patient in the ED otherwise has stable vitals including blood pressure 120/81 heart rate 98 temperature 98.4 F respiratory rate 15 and O2 sat of 99% on room air. Patient does have prior history of CO one month prior at and had stents placed. Patient in the ED otherwise denies any other symptoms at this time. Chief Complaint: Chest Pain Time Seen by MD: 12:58 Reviewed Notes: Director Of Occupational Health Notes, Medications, Allergies Allergies: Coded Allergies: NO KNOWN ALLERGIES (Unverified , 09/03/22) Home Meds Active Scripts Diclofenac Sodium (Topical) (Voltaren Arthritis Pain) 1 % Gel, 1 APPLIC EX QID for 30 Days, #60 GRAMS 0 Refills Prov:KAITLYNN KOWALSKI [employer]INTE[employer]CE [employer]CH[employer]IC 12/14/24 Atorvastatin Calcium (Lipitor) 40 Mg Tab, 1 TAB PO QPM, #90 TAB 1 Refill Prov:MARCO LOBATO MD 12/04/24 Lisinopril (Lisinopril) 2.5 Mg Tab, 2 TAB PO DAILY, #60 TAB 5 Refills Prov:MARCO LOBATO MD 12/04/24 Carvedilol (COREG) 3.125 Mg Tab, 3.125 MG PO BID, #60 TAB 9 Refills Prov:MARCO LOBATO MD 12/04/24 Aspirin (Aspir-Low) 81 Mg Tab, 81 MG PO DAILY, #90 TAB 5 Refills Prov:MARCO LOBATO MD 12/04/24 Clopidogrel Bisulfate (CLOPIDOGREL) 75 Mg Tab, 75 MG PO DAILY, #30 TAB 9 Refills Prov:MARCO LOBATO MD 12/04/24 Reported Medications Gabapentin (Gabapentin) 300 Mg Cap, 300 MG PO TID for 30 Days, MG 11/28/24 Information Source: Patient, Emergency Med Personnel Mode of Arrival: EMS Past Medical History PAST MEDICAL HISTORY: CAD, DM, HTN, CO Surgical History: PTCA Family History Family History: Reviewed,noncontributory to illness Social History Smoker: Non-Smoker Alcohol: Denies ETOH Use Drugs: Denies Drug Use Lives In: Home Constitutional: denies: chills, diaphoresis, fatigue, fever, malaise, sweats, weakness, others EENTM: denies: blurred vision, double vision, ear bleeding, ear discharge, ear drainage, ear pain, ear ringing, eye pain, eye redness, hearing loss, mouth pain, mouth swelling, nasal discharge, nose bleeding, nose congestion, nose pain, photophobia, tearing, throat pain, throat swelling, voice changes, others Respiratory: denies: cough, hemoptysis, orthopnea, SOB at rest, shortness of breath, SOB with excertion, stridor, wheezing, others Cardiovascular: reports: chest pain; denies: dizzy spells, diaphoresis, Dyspnea on exertion, edema, irregular heart beat, left arm pain, lightheadedness, p alpitations, PND, syncope, others Gastrointestinal: denies: abdomen distended, abdominal pain, blood streaked bowels, constipated, diarrhea, dysphagia, difficulty swallowing, hematemesis, melena, nausea, poor appetite, poor fluid intake, rectal bleeding, rectal pain, vomiting, others Genitourinary: denies: burning, dysuria, flank pain, frequency, hematuria, incontinence, penile discharge, penile sore, pain, testicle pain, testicle swelling, urgency, others Neurological: denies: dizziness, fainting, headache, left sided numbness, left sided weakness, numbness, paresthesia, pre-existing deficit, right sided numbness, right sided weakness, seizure, speech problems, tingling, tremors, weakness, others Musculoskeletal: denies: back pain, gout, joint pain, joint swelling, muscle pain, muscle stiffness, neck pain, others Integumetry: denies: bruises, change in color, change in hair/nails, dryness, laceration, lesions, lumps, rash, wounds, others Allergic/Immunocompromised: denies: Difficulty Healing, Frequent Infections, Hives, Itching, others Hematologic/Lymphatic: denies: anemia, blood clots, easy bleeding, easy b ruising, swollen glands, others Endocrine: denies: excessive hunger, excessive sweating, excessive thirst, excessive urination, flushing, intolerance to cold, intolerance to heat, unexplained weight gain, unexplained weight loss, others Psychiatric: denies: anxiety, bipolar disorder, depression, hopeless, panic disorder, schizophrenia, sleepless, suicidal, others All Other Systems: Reviewed and Negative Physical Exam General Appearance: No Apparent Distress HEENT: Other (Pupils and face symmetric. Moist mucous membranes.) Neck: Full Range of Motion, Normal Inspection Respiratory: Lungs Clear, No Accessory Muscle Use, No Respiratory Distress, Normal Breath Sounds Cardiovascular: No Edema, No JVD, Regular Rate/Rhythm Breast Exam: Deferred Gastrointestinal: Non Tender, Soft Genitalia: Deferred Pelvic: Deferred Rectal: Deferred Extremities: Normal inspection, Normal range of motion, Non-tender, No pedal edema Neurologic: Alert (Oriented x4), Normal Affect, Normal Mood, Other (No gross focal deficit) Cerebellar Function: NOT DONE Reflexes: NOT DONE Skin: Dry, Normal Color, Warm Lymphatic: NOT DONE EKG EKG : Comments Sinus rhythm, rate 95, normal intervals, borderline right axis deviation, old inferior infarct, nonspecific T change. Was a procedure done? Was a procedure done?: No CP Differential Dx Differential Diagnosis: Angina, Anxiety / Panic Attack, Electrolyte Disorder, Heart Failure, CO, Pulmonary Embolus Differential Diagnosis: Chest Wall Pain, Esophageal reflux/spasm, Gastritis, Pericarditis, Pneumonia X-Ray, Labs, Meds, VS Vital Signs Date Time Temp Pulse Resp B/P (MAP) Pulse Ox O2 Delivery O2 Flow Rate FiO2 03/31/25 19:38 88 18 141/73 (95) 96 03/31/25 18:37 85 16 111/65 (80) 96 03/31/25 13:59 84 18 116/74 (88) 98 03/31/25 13:59 84 18 98 Room Air 03/31/25 13:00 116/71 03/31/25 12:42 95 03/31/25 12:38 98.4 98 15 120/81 99 98.4 Lab Test 03/31/25 15:53 03/31/25 14:04 03/31/25 14:00 03/31/25 13:00 Range/Units Troponin I High Sensitivity 149 *H 68 *H 43 </=54 ng/L Urine Color Yellow Yellow Urine Clarity Clear Clear Urine pH 5.0 5.0-9.0 Urine Specific [place] 1.014 1.001-1.035 Urine Protein Negative Negative Urine Ketones Negative Negative Urine Blood Negative Negative /uL Urine Nitrite Negative Negative Urine Bilirubin Negative Negative Urine Urobilinogen Normal Negative mg/dL Urine Leukocyte Esterase Negative Negative /uL Urine RBC 1 0 - 3 /hpf Urine Microscopic WBC < 1 0-3 /HPF Urine Squamous Epithelial Cells Few <5 /hpf Urine Bacteria None seen None Seen /hpf Urine Glucose Trace Normal mg/dL White Blood Count 8.8 4.4-10.8 10^3/uL Red Blood Count 3.94 L 4.5-5.90 10^6/uL Hemoglobin 11.9 L 13.5-17.5 g/dL Hematocrit 35.0 L 41.0-53.0 % Mean Corpuscular Volume 88.8 80.0-100.0 fL Mean Corpuscular Hemoglobin 30.1 28.0-32.0 pg Mean Corpuscular Hemoglobin Concent 33.9 32.0-36.0 g/dL Red Cell Distribution Width 13.9 11.8-14.3 % Platelet Count 269 140-450 10^3/uL Mean Platelet Volume 8.5 6.9-10.8 fL Neutrophils (%) (Auto) 59.7 37.0-80.0 % Lymphocytes (%) (Auto) 24.1 10.0-50.0 % Monocytes (%) (Auto) 10.0 0.0-12.0 % Eosinophils (%) (Auto) 5.6 0.0-7.0 % Basophils (%) (Auto) 0.6 0.0-2.0 % Neutrophils # (Auto) 5.3 1.6-8.6 10 ^3/uL Lymphocytes # (Auto) 2.1 0.4-5.4 10 ^3/uL Monocytes # (Auto) 0.9 0-1.3 10 ^3/uL Eosinophils # (Auto) 0.5 0-0.8 10 ^3/uL Basophils # (Auto) 0.1 0-0.2 10 ^3/uL Nucleated Red Blood Cells 0.0 % Sodium Level 139 136-145 mmol/L Potassium Level 4.7 3.5-5.1 mmol/L Chloride Level 105 98-107 mmol/L Carbon Dioxide Level 24 20-31 mmol/L Anion Gap 10 5-15 Blood Urea Nitrogen 43 H 9-23 mg/dL Creatinine 2.95 H 0.700-1.30 mg/dL Glomerular Filtration Rate Calc 21 >90 mL/min BUN/Creatinine Ratio 14.6 10.0-20.0 Serum Glucose 297 H 74-106 mg/dL Calcium Level 9.2 8.7-10.4 mg/dL B-Type Natriuretic Peptide 58.62 0-100 pg/mL [facility] [id number] [place] [address] Ph: [phone] DIAGNOSTIC IMAGING Diagnostic Imaging Report : [id number] Signed PATIENT: MAGALY DAMIAN ACCT: [id number] UNIT: [id number] : 1945 LOC: ER ROOM / BED: / AGE / SEX: 79 / M ADM STATUS: REG ER SERVICE 1250 ORDERING PHYSICIAN: KARLA CONDON MD PROCEDURE(s): CXRP - CHEST PORTABLE REASON: cp ORDER NUMBER(s): [id number], ACCESSION NUMBER(s): [id number] EXAM: XY CHEST PORTABLE Indication: cp Technique: Single frontal view of the chest was obtained Comparison: XY CHEST PORTABLE on DOS: 11/26/24, CHEST PORTABLE on DOS: 09/02/22, CXRP on DOS: 09/02/22 FINDINGS: Lines and Tubes: None Lungs: No focal consolidation. Pleura: No effusion. No pneumothorax. Cardiomediastinal contours: Unremarkable. Atherosclerotic vascular calcificat ions of the thoracic aorta are noted. Bones: No acute osseous abnormality. IMPRESSION: No acute cardiopulmonary disease. ATED BY: CHERIE AMOS MD DICTATED DATE/TIME: 03/31/251331 SIGNED BY: CHERIE AMOS MD SIGNED DATE/TIME: 03/31/251331 CC: X-Ray, Labs, Meds, VS Comment 79-year-old male with a history of hypertension, diabetes, dyslipidemia, CAD and STEMI status post PTCA complaining of chest pain Vitals unremarkable Exam unremarkable Rhythm strip independently interpreted by me: Sinus rhythm, 95, no ectopy. Chest x-ray unremarkable CBC unremarkable, metabolic panel remarkable for BUN 43, creatinine 2.95, BNP normal, troponins 43, 68 and 149 Patient treated with the following in the ED: Took own aspirin 325 mg p.o. at home Nitro bid 1/2 inch to chest wall, 1 L 0.9 normal saline IV bolus On re-evaluation, patient's pain was minimal and vitals were stable. Plan is to admit the patient for Cardiology and Nephrology evaluation. Time of 1ST Reevaluation: 13:30 Reevaluation 1ST: Unchanged Patient Education/Counseling: Diagnosis, Treatment Family Education/Counseling: No Family Present SEPSIS Sepsis Screen Date sepsis recognized/suspect: Mar 31, 2025 Time Sepsis recognized/suspect: 1246 Recent Procedure: No On Antibiotic Therapy: No Respiratory Rate >20: No Heart Rate >90: No Temp<36 C (96.8 F) or >38.3 C: No SBP <90 or MAP <65 mmHG: No New Acute Mental Status Change: No Is the patient on CPAP, BIPAP,: No Physician Orders Chest Portable (03/31/25 12:50) Lisinopril Tablet (Zestril Tablet) (04/01/25 10:00) Clopidogrel Bisulfate (Plavix) (04/01/25 10:00) Carvedilol Tablet (Coreg Tablet) (03/31/25 22:00) Atorvastatin (Lipitor) (03/31/25 22:00) Aspirin Tablet (04/01/25 10:00) * Cardiology Consult (03/31/25 19:37) *[facility] (03/31/25 19:37) Basic Metabolic Panel (04/01/25 04:00) Glucose Blood (Accu-Chek Comfort Curve T (03/31/25 22:00) Insulin R (Human) (Insulin R) (03/31/25 22:00) Dextrose 50% Syringe (03/31/25 19:45) Admit (03/31/25 19:37) Ondansetron Hcl (Zofran) (03/31/25 19:45) Cardiac Diet-2gna,Lofat,Lochol (04/01/25 Breakfast) Condition: Fair (03/31/25 19:37) Bedrest With Bathroom Privileg (03/31/25 19:37) Nitroglycerin Sublingual (Ntrostat Subli (03/31/25 19:45) Morphine Sulfate Injection (03/31/25 19:45) Stat Ekg For Chest Pain (03/31/25 19:37) Notify Md Of Changes From Base (03/31/25 19:37) R D Engineer For 24 Hours (03/31/25 19:37) Emergency Dysrhythmia Protocol (03/31/25 19:37) Rhythm Strips Once Every Shift (03/31/25 19:37) Oxygen By Nasal Cannula (03/31/25 19:37) Vital Signs Date Time Temp Pulse Resp B/P (MAP) Pulse Ox O2 Delivery O2 Flow Rate FiO2 03/31/25 19:38 88 18 141/73 (95) 96 03/31/25 18:37 85 16 111/65 (80) 96 03/31/25 13:59 84 18 116/74 (88) 98 03/31/25 13:59 84 18 98 Room Air 03/31/25 13:00 116/71 03/31/25 12:42 95 03/31/25 12:38 98.4 98 15 120/81 99 98.4 Laboratory Tests Test 03/31/25 13:00 White Blood Count 8.8 10^3/uL (4.4-10.8) Departure 1 Departure Time of Disposition: 16:00 Impression: Primary Impression: Non-STEMI (non-ST elevated myocardial infarction) Additional Impression: Acute kidney injury superimposed on CKD Disposition: ADMITTED INPATIENT Admit to: Tele Condition: Guarded Critical Care Note Critical Care Time?: Yes (35 min-critical care time only) Critical care comment: Critical care time including multiple bedside re-evaluations, review of lab and imaging studies, and discussion of the case with the admitting provider. Pa ne is high risk for hemodynamic and/or metabolic decompensation. Stability Stability form required: No Heart Score Heart Score: Heart Score Response (Comments) Value History Moderate Suspicious 1 EKG Repolarization Disturb 1 Age >65 2 Risk Factors >3 or Hx ASHD 2 Troponin >3 x's Normal limit 2 Total 8 I personally scribed for KARLA CONDON MD ([facility]) on 03/31/25 at 12:59. Electronically submitted by Johny Wade ([facility]). I personally scribed for KARLA CONDON MD ([facility]) on 03/31/25 at 13:36. Electronically submitted by Johny Wade ([facility]). KARLA CONDON MD Mar 31, 2025 12:59
[2025-03-31] MEDS: NITROGLYCERIN 2% OINT 1GM PKG TD ONE (13:00)
[2025-03-31 13:19] LABS: Hematocrit 35.0 % (41.0-53.0); Hemoglobin 11.9 g/dL (13.5-17.5); Mean Corpuscular Hemoglobin 30.1 pg (28.0-32.0); Mean Corpuscular Volume 88.8 fL (80.0-100.0); Nucleated Red Blood Cells % 0.0 %
[2025-03-31 13:28] LABS: Chloride 105 mmol/L (98-107); Potassium 4.7 mmol/L (3.5-5.1); Sodium 139 mmol/L (136-145)
[2025-03-31 13:29] LABS: Anion Gap 10 (5-15); Carbon Dioxide 24 mmol/L (20-31)
[2025-03-31 13:30] LABS: Calcium 9.2 mg/dL (8.7-10.4)
[2025-03-31 13:34] LABS: BUN/Creatinine Ratio 14.6 (10.0-20.0)
--- NOTE | 2025-03-31 13:34 | DVH ---
EXAM: XY CHEST PORTABLE Indication: cp Technique: Single frontal view of the chest was obtained Comparison: XY CHEST PORTABLE on DOS: 11/26/24, CHEST PORTABLE on DOS: 09/02/22, CXRP on DOS: 09/02/22 FINDINGS: Lines and Tubes: None Lungs: No focal consolidation. Pleura: No effusion. No pneumothorax. Cardiomediastinal contours: Unremarkable. Atherosclerotic vascular calcifications of the thoracic ao rta are noted. Bones: No acute osseous abnormality. IMPRESSION: No acute cardiopulmonary disease.
[2025-03-31 13:35] LABS: Blood Urea Nitrogen 43 mg/dL (9-23); Glucose 297 mg/dL (74-106)
[2025-03-31 14:36] LABS: Urine Protein, UAD Negative (Negative)
--- NOTE | 2025-03-31 19:37 | ECG ---
[facility] Test Date: 2025-03-31 Test Time: 12:42:48 Pat Name: MAGALY DAIMAN Department: [facility] ED Patient ID: [facility]-[id number] Room: [address] [place] [address] Gender: M [employer] Technical Director: nini : 1945 Requested By: KARLA ALEXANDRA Order Number: [id number] Reading MD: Son Aviles Measurements Intervals [place] Rate: 95 P: 78 MO: 163 QRS: 82 QRSD: 84 T: -9 QT: 349 QTc: 439 Interpretive Statements Sinus rhythm Borderline right axis deviation Borderline T abnormalities, diffuse leads Electronically Signed On 04-01-2025 17:02:53 PDT by Son Aviles Please click the below link to view image of tracing.
[2025-03-31 19:38] VITALS: BP 141/73; PULSE 88; RESP 18; O2SAT 96
[2025-03-31] MEDS ORDERED: DEXTROSE (50%) 50ML SYRG IV PRN (19:45)
[2025-03-31] MEDS ORDERED: MORPHINE SULFATE INJ 2 MG/ml SYRG IV PRN (19:45)
[2025-03-31] MEDS ORDERED: NITROGLYCERIN 0.4 MG SL TAB SL PRN (19:45)
[2025-03-31] MEDS ORDERED: SODIUM CHLORIDE 0.9% 1,000 ML IV ONE (19:45)
[2025-03-31] MEDS ORDERED: ONDANSETRON HCL 4 MG/2 ML VIAL IV PRN (19:45)
[2025-03-31] MEDS ORDERED: CARVEDILOL 3.125 MG TAB PO SCH (22:00)
[2025-03-31] MEDS ORDERED: ATORVASTATIN 20 MG TAB PO SCH (22:00)
[2025-03-31] MEDS ORDERED: ACCU-CHEK COMFORT CURVE STRIP VI SCH (22:00)
[2025-03-31] MEDS ORDERED: InsuLIN REG 1unit/0.01ml Soln (100units/ml) SC SCH (22:00)
[2025-04-01] MEDS ORDERED: CLOPIDOGREL BISULFATE 75 MG TAB PO SCH (10:00)
[2025-04-01] MEDS ORDERED: LISINOPRIL 5 MG TAB PO SCH (10:00)
== END 2025-03-31 21:51 | disposition left against medical advice (07) | DRG 281 ==
LOC: EDBD 12:38 → ER 12:38 → OVERFLOW 19:37
PROVIDERS: ADMIT Nurse Practitioner; ATTEND Nurse Practitioner
DX: I21.4 Non-ST elevation (NSTEMI) myocardial infarction (principal); N17.9 Acute kidney failure, unspecified; N18.9 Chronic kidney disease, unspecified; I12.9 Hypertensive chronic kidney disease with stage 1 through stage 4 chronic kidney disease, or unspecified chronic kidney disease; E11.22 Type 2 diabetes mellitus with diabetic chronic kidney disease; I25.10 Atherosclerotic heart disease of native coronary artery without angina pectoris
CPT/HCPCS: 36415; 71045; 80048; 81001; 83880; 84484; 85025; 93005; 99291; G0378